=== PATIENT | female | born 1940 | race Caucasian/White ===

== ENCOUNTER 2017-06-16 21:30 | Inpatient (IN) | payer MEDICARE ==
[~2017-06-16] VITALS: Ht 154.9 cm; Wt 70.9 kg
[2017-06-16 21:11] VITALS: BP 150/93
[2017-06-16] MEDS ORDERED: AMLO10TA2 PO (22:42)
[2017-06-16] MEDS ORDERED: ACET650T89 PO (22:42)
[2017-06-16] MEDS ORDERED: GLUC-99 PO (22:42)
[2017-06-16] MEDS ORDERED: ALPR0.25 PO (22:42)
[2017-06-16] MEDS ORDERED: SENN1TAB37 PO (22:42)
[2017-06-16] MEDS ORDERED: LOSA25TA4 PO (22:42)
[2017-06-16] MEDS ORDERED: ASCO500T2 PO (22:42)
[2017-06-16] MEDS ORDERED: DOCU-109 PO (22:42)
[2017-06-16] MEDS ORDERED: LEVO137T3 PO (22:42)
[2017-06-16] MEDS ORDERED: OMEG-33 PO (22:42)
[2017-06-16] MEDS ORDERED: CHOL10003 PO (22:42)
[2017-06-16] MEDS ORDERED: ALPR0.5T PO (22:42)
[2017-06-16] MEDS ORDERED: CYAN10005 PO (22:42)
[2017-06-16] MEDS ORDERED: ALPRAZolam 0.5 MG TABLET PO PRN (23:00)
[2017-06-17 06:18] VITALS: BP 151/100
[2017-06-17 07:01] LABS: BASO % 1 % (0-3); EOS # 0.1 x10^3/uL (0.0-0.7); EOS % 1 % (0-3); HEMATOCRIT 43.3 % (36.0-47.0); HEMOGLOBIN 14.6 g/dL (12.0-15.5); LYMPH # 1.3 x10^3/uL (1.0-4.8); LYMPH % 21 % (24-48); MEAN CORPUSCULAR HEMOGLOBIN 32 pg (25-35); MEAN CORPUSCULAR HGB CONC 34 g/dL (31-37); MEAN CORPUSCULAR VOLUME 96 fL (79-100); MONO # 0.6 x10^3/uL (0.0-1.1); MONO % 9 % (0-9); NEUT # 4.2 x10^3uL (1.8-7.7); NEUT % 68 % (31-73); PLATELET COUNT 135 x10^3/uL (140-400); RED BLOOD COUNT 4.53 x10^6/uL (3.50-5.40); RED CELL DISTRIBUTION WIDTH 12.9 % (11.5-14.5); WHITE BLOOD COUNT 6.2 x10^3/uL (4.0-11.0)
[2017-06-17 07:06] LABS: ALBUMIN 3.8 g/dL (3.4-5.0); ALBUMIN/GLOBULIN RATIO 1.1 (1.0-1.7); CALCIUM 8.8 mg/dL (8.5-10.1); CREATININE 1.4 mg/dL (0.6-1.0); GFR 36.4; MAGNESIUM 2.1 mg/dL (1.8-2.4); POTASSIUM 4.1 mmol/L (3.5-5.1); TOTAL BILIRUBIN 0.7 mg/dL (0.2-1.0); TOTAL PROTEIN 7.3 g/dL (6.4-8.2)
[2017-06-17] MEDS: CHOLECALCIFEROL (VITAMIN D3) 1,000 UNIT TABLET PO SCH ×2 (14:00→14:42)
[2017-06-17] MEDS: ASCORBIC ACID 500 MG TABLET PO SCH ×2 (14:00→14:42)
[2017-06-17] MEDS: CYANOCOBALAMIN (VITAMIN B-12) 1,000 MCG TABLET. PO SCH ×2 (14:00→14:42)
[2017-06-17] MEDS: SENNOSIDES/DOCUSATE 8.6/50MG TABLET. PO PRN (14:42)
[2017-06-17] MEDS: amLODIPine BESYLATE 10 MG TABLET PO SCH (14:43)
[2017-06-17] MEDS: OMEGA-3 FATTY ACIDS/FISH OIL 1,000 MG CAPSULE. PO SCH (14:43)
[2017-06-17 16:54] VITALS: BP 171/94
[2017-06-17 17:09] LABS: T3 TOTAL 79 ng/dL (71-180); THYROXINE 12.3 ug/dL (4.5-12.0)
[2017-06-17 17:13] LABS: THYROID STIM HORMONE (TSH) 1.326 uIU/mL (0.358-3.740)
--- NOTE | 2017-06-17 20:22 | PDOC ---
Exam Michael Demential Exam: Michael Note: Please also refer to the separate dictated note~for this date of service dictated separately.~Patient seen individually. Discussed the patient with Nursing staff reviewed the chart.~Reviewed interim history and current functioning. Reviewed vital signs,~Labs/ Radiology~and current medications noted below. Continue current treatment with the changes noted in the dictated addendum note Assessment: Vital Signs: Vital Signs Date Time Temp Pulse Resp B/P (MAP) Pulse Ox O2 Delivery O2 Flow Rate FiO2 06/17/17 16:54 98.1 75 16 171/94 (119) 97 06/17/17 06:18 Room Air I&O Intake and Output 06/17/17 07:00 Intake Total 120 ml Balance 120 ml Intake Oral 120 ml # Voids 4 Labs: Laboratory Tests Test 06/17/17 06:41 White Blood Count 6.2 x10^3/uL (4.0-11.0) Red Blood Count 4.53 x10^6/uL (3.50-5.40) Hemoglobin 14.6 g/dL (12.0-15.5) Hematocrit 43.3 % (36.0-47.0) Mean Corpuscular Volume 96 fL (79-100) Mean Corpuscular Hemoglobin 32 pg (25-35) Mean Corpuscular Hemoglobin Concent 34 g/dL (31-37) Red Cell Distribution Width 12.9 % (11.5-14.5) Platelet Count 135 x10^3/uL (140-400) L Neutrophils (%) (Auto) 68 % (31-73) Lymphocytes (%) (Auto) 21 % (24-48) L Monocytes (%) (Auto) 9 % (0-9) Eosinophils (%) (Auto) 1 % (0-3) Basophils (%) (Auto) 1 % (0-3) Neutrophils # (Auto) 4.2 x10^3uL (1.8-7.7) Lymphocytes # (Auto) 1.3 x10^3/uL (1.0-4.8) Monocytes # (Auto) 0.6 x10^3/uL (0.0-1.1) Eosinophils # (Auto) 0.1 x10^3/uL (0.0-0.7) Basophils # (Auto) 0.0 x10^3/uL (0.0-0.2) Sodium Level 140 mmol/L (136-145) Potassium Level 4.1 mmol/L (3.5-5.1) Chloride Level 104 mmol/L (98-107) Carbon Dioxide Level 28 mmol/L (21-32) Anion Gap 8 (6-14) Blood Urea Nitrogen 26 mg/dL (7-20) H Creatinine 1.4 mg/dL (0.6-1.0) H Estimated GFR (Cockcroft-Gault) 36.4 BUN/Creatinine Ratio 19 (6-20) Glucose Level 112 mg/dL (70-99) H Calcium Level 8.8 mg/dL (8.5-10.1) Magnesium Level 2.1 mg/dL (1.8-2.4) Iron Level 69 ug/dL (50-170) Total Iron Binding Capacity 305 ug/dL (250-450) Iron Saturation 23 % (15-34) Total Bilirubin 0.7 mg/dL (0.2-1.0) Aspartate Amino Transferase (AST) 18 U/L (15-37) Alanine Aminotransferase (ALT) 21 U/L (14-59) Alkaline Phosphatase 63 U/L (46-116) Total Protein 7.3 g/dL (6.4-8.2) Albumin 3.8 g/dL (3.4-5.0) Albumin/Globulin Ratio 1.1 (1.0-1.7) Triglycerides Level 85 mg/dL (0-150) Cholesterol Level 264 mg/dL (0-200) H LDL Cholesterol, Calculated 141 mg/dL (0-100) H VLDL Cholesterol, Calculated 17 mg/dL (0-40) Non-HDL Cholesterol Calculated 158 mg/dL (0-129) H HDL Cholesterol 106 mg/dL (40-60) H Cholesterol/HDL Ratio 2.0 Vitamin B12 Level > 2000 pg/mL (247-911) H 25-Hydroxy Vitamin D Total Pending Thyroid Stimulating Hormone (TSH) 1.326 uIU/mL (0.358-3.740) Thyroxine (T4) 12.3 ug/dL (4.5-12.0) H Total Triiodothyronine (TT3) 79 ng/dL (71-180) RPR Titer Additional Testing Pending Current Medications: Meds: Current Medications Alprazolam (Xanax) 0.25 mg PRN QHS PRN PO Mild Anxiety; Start 06/16/17 at 23:00 Alprazolam (Xanax) 0.5 mg PRN QHS PRN PO Severe Agitation; Start 06/16/17 at 23 :00 Amlodipine Besylate (Norvasc) 10 mg DAILY PO Last administered on 06/17/17t 14: 43; Start 06/17/17 at 14:00 Ascorbic Acid (Vitamin C) 1,000 mg DAILY PO ; Start 06/17/17 at 14:00 Vitamin D (Vitamin D3) 1,000 unit DAILY PO ; Start 06/17/17 at 14:00 Cyanocobalamin (Vitamin B-12) 1,000 mcg DAILY PO ; Start 06/17/17 at 14:00 Docusate Sodium (Colace) 100 mg QHS PO ; Start 06/17/17 at 21:00 Levothyroxine Sodium (Synthroid) 137 mcg DAILY06 PO ; Start 06/18/17 at 06:00 Losartan Potassium (Cozaar) 25 mg DAILY PO ; Start 06/18/17 at 09:00; Stop 06/18 at 09:00; Status DC Senna/Docusate Sodium (Senna Plus) 1 tab PRN DAILY PRN PO CONSTIPATION; Start 06/17/17 at 13:45 Acetaminophen (Tylenol) 1,300 mg QHS PO ; Start 06/17/17 at 21:00 Glucosamine/ Chondroitin (Glucosamine-Chondroitin 500/400mg) 2 cap DAILY PO ; Start 06/17/17 at 21:00 Fish Oil (Fish Oil) 1,000 mg DAILY PO Last administered on 06/17/17t 14:43; Start 06/17/17 at 14:00 Bupropion HCl (Wellbutrin Xl) 150 mg DAILY PO ; Start 06/18/17 at 09:00 Quetiapine Fumarate (SEROquel) 25 mg QHS PO ; Start 06/17/17 at 21:00 Artificial Tears (Artificial Tears) 1 drop PRN QID PRN OU DRY EYE; Start at 19:15 Active Scripts Active Reported Arthritis Pain (Acetaminophen) 650 Mg Tablet.er 1,300 Mg PO QHS Sennosides-Docusate Sodium Tab (Sennosides/Docusate Sodium) 1 Each Tablet 1 Tab PO PRN DAILY PRN Colace (Docusate Sodium) 100 Mg Capsule 100 Mg PO QHS Vitamin D3 (Cholecalciferol (Vitamin D3)) 1,000 Unit Tablet 1,000 Unit PO DAILY Vitamin B-12 (Cyanocobalamin (Vitamin B-12)) 1,000 Mcg Tablet 1,000 Mcg PO DAILY Glucosamine Chondroitin [place] (Glucosa [place] 2KCL/Chondroitin Grady) 1 Each Tablet 2 Cap PO DAILY Vitamin C (Ascorbic Acid) 500 Mg Tablet 1,000 Mg PO DAILY [place] 3 1,000 Mg Softgel ([place]-3 Fatty Acids/Fish Oil) 1 Each Capsule 1 Cap PO DAILY Xanax (Alprazolam) 0.5 Mg Tablet 0.5 Mg PO PRN QHS PRN Xanax (Alprazolam) 0.25 Mg Tablet 0.25 Mg PO PRN QHS PRN Levothyroxine Sodium 137 Mcg Tablet 137 Mcg PO DAILY07 Amlodipine Besylate 10 Mg Tablet 10 Mg PO DAILY Losartan Potassium 25 Mg Tablet 25 Mg PO DAILY RACHELLE CHIN MD Jun 17, 2017 20:22
[2017-06-17] MEDS: GLUCOSAMINE/CHOND 500/400MG CAPSULE PO SCH (20:53)
[2017-06-17] MEDS: DOCUSATE SODIUM 100 MG CAPSULE PO SCH (20:53)
[2017-06-17] MEDS: ACETAMINOPHEN 325 MG TABLET PO SCH ×2 (20:53→21:00)
[2017-06-17] MEDS: QUEtiapine 25 MG TABLET. PO SCH (20:53)
--- NOTE | 2017-06-18 00:01 | HP ---
ADMIT DATE: 06/17/2017 PSYCHIATRIC ADMISSION HISTORY/EVALUATION IDENTIFYING DATA: The patient is a 76-year-old female referred to us by Dr. Arti Ramon who is a physician on-call for [facility]. After Dr. Ramon called herself requesting patient to be considered for inpatient psychiatric evaluation and stabilization on our unit on account of worsening confusion, worsening symptoms of depression, not caring for herself, not showering unable to cook for herself. Reportedly, has been taking the patient 3-1/2 hours to make a can of soup. She has been noncompliant with the medications increasingly paranoid more confused. Her symptoms have been worsening over the past few weeks. The patient had been evaluated at the [facility] Emergency Room, thought to be medically stable and family were told that she needed to be supervised at times 24 hours a day. The patient's behaviors were deemed dangerous, unmanageable and having failed outpatient psychiatric interventions, as an outpatient Dr. Ramon made the referral after reviewing all of her previous electronic medical records within the [facility]. CHIEF COMPLAINT: "This is a mistake." The patient was relating that it was a mistake for her to come here. She is quite depressed, withdrawn, isolative, but reasonably oriented aware of the year. Knew she was at [facility] and knew who the president was as I met with her. HISTORY OF PRESENT ILLNESS: The patient has a history of progressively worsening symptoms of depression. She has been increasingly withdrawn, isolative unable to take care of her day-to-day activities increasingly paranoid. No clear suicidal or homicidal ideation. No clear history of bipolar disorder. She has had some short-term memory deficits, but reasonably grossly oriented. PSYCHIATRIC HISTORY: As above. This note covers elements not covered in my initial note. Page 14. MEDICAL HISTORY: Hypertension, hypothyroidism, chronic constipation. Code status is full. ALLERGIES: MORPHINE, QUININE, LISINOPRIL, SIMVASTATIN, CYMBALTA, HYDROCODONE, PROCHLORPERAZINE EDISYLATE. Diet is regular. Takes her medications whole. Ambulate with a walker. UA was negative. CURRENT PSYCHOTROPICS: Xanax 0.5 mg at bedtime p.r.n. ____ agree. SOCIAL HISTORY: No history of alcohol, drug abuse, physical, sexual or elder abuse history is noted. She is not known to be a perpetrator. 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 MENTAL STATUS EXAM: The patient was seen individually evening of 06/17/2017. She admits to feeling cold and nursing staff had given her a warm blanket at suppertime and she felt more comfortable with this. Speech has moderate latency, often responses monosyllabic. She was aware of the year, month where she was. Mood is depressed. Affect is mood congruent. She is paranoid, suspicious. Attention span short. Language function intact. Intellect average, insight limited, judgment marginal. No active suicidal or homicidal ideation. REVIEW OF SYSTEMS: No CV, , pulmonary, eye, ENT system symptoms on review. IMPRESSION: Major depressive disorder recurrent with psychotic features, mild cognitive impairment; anxiety disorder, unspecified. Rest diagnoses as above. PLAN: Admit to the geropsychiatry unit at [facility]. I will see the patient daily individually from a psychiatric standpoint medical followup with Dr. Huynh/Dr. Dang. Continue current psychotropics. Start Wellbutrin-XL 150 mg a day in the morning for depression and Seroquel 25 mg p.o. at bedtime to augment the Wellbutrin to help with the mood stability and as an atypical antipsychotic. We will make further adjustments as clinically indicated. MAN Lula CHIN MD DR: JAVI/sebastian JOB#: [id number] / [id number]
[2017-06-18 05:09] LABS: HEMOGLOBIN A1C 5.1 % (4.8-5.6)
[2017-06-18] MEDS: LEVOTHYROXINE 137 MCG TABLET PO SCH (05:31)
[2017-06-18 05:32] VITALS: BP 128/79
--- NOTE | 2017-06-18 05:39 | CONS ---
DATE OF CONSULTATION: 06/17/2017 REASON FOR CONSULTATION: Medical management. HISTORY OF PRESENT ILLNESS: The patient is a 76-year-old female patient who was admitted from home on the basis of exacerbation of her dementia symptoms, unable to take care for herself, confusion, and noncompliant with medication, paranoid, and took about 3-1/2 hours to make can of soup, all this in the background of dementia with behavioral disturbances. Apparently, the patient was evaluated in the Emergency Room at [facility]. The patient herself admitted to confusion and depression. According to her family, she can be also very mean at times and aggressive, although she has not displayed any of that in this facility so far. When she was evaluated at [facility], it was suggested that the family should look for an Assisted Living as it is unsafe for her to live on her own, however, the family decided to admit her here for inpatient psychiatric stabilization. PAST MEDICAL HISTORY: Significant for breast cancer of the lower inner quadrant of the right female breast, right grade II hormone plus CIS. She has hypertension, hypothyroidism, osteoarthritis, obstructive sleep apnea on CPAP, osteopenia. She has degenerative disk disease, history of blood transfusion, thrombotic thrombocytopenia as well as degenerative disk disease, cervical and lumbar spine and severe degenerative joint disease of both knee joints. She has also history of acute renal failure that has resolved, atypical ductal hyperplasia of the breast in 2009. PAST SURGICAL HISTORY: Significant for right breast biopsy, breast cyst aspiration, bilateral cataract extraction, colonoscopy showed diverticulosis with tubular adenoma. She underwent dilatation and curettage, history of breast biopsy x 3 all benign, thyroidectomy, tubal ligation, knee replacement, lumpectomy, and tonsillectomy. SOCIAL HISTORY: She lives alone. She never smoked, does not drink alcohol or use any drugs. FAMILY HISTORY: Significant for the fact that her mother at age of 35 from renal failure associated with . Her sister has lung cancer. Maternal aunt has oral cancer and a sister has a cancer. REVIEW OF SYSTEMS: The patient was basically refused to answer most of my questions; however, she was resting flat, comfortably in no apparent respiratory distress. No pallor, jaundice, cyanosis, or thyromegaly. No jugular venous distension. No lower limb edema. PHYSICAL EXAMINATION: VITAL SIGNS: Her heart rate was 83, blood pressure 151/100, temperature was 98.1, respiratory rate 20, and oxygen saturation was 98%. HEAD, EYES, EARS, NOSE, AND THROAT: Showed normocephalic, atraumatic. NECK: Supple. HEART: Showed normal first and second sounds. No gallop, rub or murmur. CHEST: Clear to auscultation. No crepitation or rhonchi. ABDOMEN: Slightly distended, soft, nontender. No guarding or rigidity. No organomegaly. All hernial orifices intact. Bowel sounds normal. NEUROLOGIC: She is awake, alert, somewhat withdrawn; however, all her cranial nerves are intact. She moves extremities without difficulty. She ambulates with a walker. LABORATORY DATA: Her lab work showed a white cell count 6200, hemoglobin 14.6, hematocrit 43, MCV 96, and platelet count of 135,000. Her chemistry showed a serum sodium 140, potassium 4.1, chloride 104, bicarbonate 28, anion gap of 8, BUN 28, creatinine 1.4, estimated GFR was 36 mL per minute. Her glucose 112, calcium was 8.8, magnesium 2.1. Total bilirubin, AST, ALT, alkaline phosphatase were normal. Her total protein was 7.3, albumin 3.8. She is currently on following medications: She is on Tylenol 650 mg every 4 hours and 1300 mg at bedtime, alprazolam 0.25 mg at bedtime and 0.5 mg as needed at bedtime, amlodipine 10 mg once a day, ascorbic acid 500 mg daily, cholecalciferol with vitamin D3 of 1000 international units once a day, cyanocobalamin 1000 mcg tablet once a day, Colace 100 mg once a day, she is on glucosamine chondroitin 2 capsules daily, levothyroxine sodium 137 mcg once a day, losartan potassium 25 mg once a day, omega-3 fatty acid fish oil 1 capsule daily, she is on Senna-S 1 tablet p.o. daily p.r.n. for constipation. IMPRESSION: In summary, this is a 76-year-old female patient who was admitted directly from home by her family request as she has marked exacerbation of her dementia symptoms, unable to care for herself with increased confusion, paranoia. She is noncompliant with the medication. She is here for inpatient psychiatric stabilization. She has multiple medical problems including hypertension, hypothyroidism, chronic constipation. She is also known to have hyperlipidemia and her past psychiatric history is significant for dementia as well as depression. All in all she seemed to be medically stable, all her vital signs are within acceptable range. Her lab work also within acceptable range except that she has thrombocytopenia, apparently is known to have thrombocytopenia before. She is not on any medications that make her bleed or interfere with the platelet function. Her hypertension is suboptimally controlled. She is on losartan potassium 25 mg that can be increased to 50. I will await the results of her TSH. Her kidney function is slightly improved, most likely reflecting dehydration. She is not on any nephrotoxic medications. She is apparently allergic to MORPHINE, QUININE, LISINOPRIL, SIMVASTATIN, CYMBALTA, HYDROCODONE, PROCHLORPERAZINE. PLAN: My plan is to probably discontinue losartan, start her on amlodipine as it is less nephrotoxic and will obviously attempt to increase her water intake and follow all her labs that are still pending and make any necessary recommendation. Thank you, Dr. Bui for allowing me to participate in the care of this patient. MARLYN GARCIA MD DR: SANTOSH/sebastian JOB#: [id number] / [id number]
[2017-06-18] MEDS: ASCORBIC ACID 500 MG TABLET PO SCH (08:57)
[2017-06-18] MEDS: CYANOCOBALAMIN (VITAMIN B-12) 1,000 MCG TABLET. PO SCH (08:57)
[2017-06-18] MEDS: CHOLECALCIFEROL (VITAMIN D3) 1,000 UNIT TABLET PO SCH (08:57)
[2017-06-18] MEDS: OMEGA-3 FATTY ACIDS/FISH OIL 1,000 MG CAPSULE. PO SCH (08:57)
[2017-06-18] MEDS: amLODIPine BESYLATE 10 MG TABLET PO SCH (08:57)
[2017-06-18] MEDS: GLUCOSAMINE/CHOND 500/400MG CAPSULE PO SCH (08:57)
[2017-06-18] MEDS: buPROPion XL 150 MG TAB.ER.24H PO SCH (08:58)
[2017-06-18] MEDS ORDERED: LOSARTAN 25 MG TABLET. PO SCH (09:00)
[2017-06-18] MEDS: POLYVINYL ALCOHOL 1.4% OPHTH SOLUTION 15ML BOTTLE. OU PRN ×2 (09:14→20:50)
[2017-06-18 16:30] VITALS: BP 122/88
--- NOTE | 2017-06-18 19:56 | PDOC ---
Exam Michael Demential Exam: Michael Note: Please also refer to the separate dictated note~for this date of service dictated separately.~Patient seen individually. Discussed the patient with Nursing staff reviewed the chart.~Reviewed interim history and current functioning. Reviewed vital signs,~Labs/ Radiology~and current medications noted below. Continue current treatment with the changes noted in the dictated addendum note Assessment: Vital Signs: Vital Signs Date Time Temp Pulse Resp B/P (MAP) Pulse Ox O2 Delivery O2 Flow Rate FiO2 06/18/17 16:30 99.4 75 18 122/88 (99) 97 06/18/17 05:32 Room Air I&O Intake and Output 06/18/17 07:00 Intake Total 360 ml Balance 360 ml Intake Oral 360 ml Current Medications: Meds: Current Medications Alprazolam (Xanax) 0.25 mg PRN QHS PRN PO Mild Anxiety; Start 06/16/17 at 23:00 Alprazolam (Xanax) 0.5 mg PRN QHS PRN PO Severe Agitation; Start 06/16/17 at 23 :00 Amlodipine Besylate (Norvasc) 10 mg DAILY PO Last administered on 06/18/17 08: 57; Start 06/17/17 at 14:00 Ascorbic Acid (Vitamin C) 1,000 mg DAILY PO Last administered on 06/18/17 08: 57; Start 06/17/17 at 14:00 Vitamin D (Vitamin D3) 1,000 unit DAILY PO Last administered on 06/18/17 08:57 ; Start 06/17/17 at 14:00 Cyanocobalamin (Vitamin B-12) 1,000 mcg DAILY PO Last administered on 08:57; Start 06/17/17 at 14:00 Docusate Sodium (Colace) 100 mg QHS PO Last administered on 06/17/17 20:53; Start 06/17/17 at 21:00 Levothyroxine Sodium (Synthroid) 137 mcg DAILY06 PO Last administered on 05:31; Start 06/18/17 at 06:00 Losartan Potassium (Cozaar) 25 mg DAILY PO ; Start 06/18/17 at 09:00; Stop 06/18 at 09:00; Status DC Senna/Docusate Sodium (Senna Plus) 1 tab PRN DAILY PRN PO CONSTIPATION; Start 06/17/17 at 13:45 Acetaminophen (Tylenol) 1,300 mg QHS PO ; Start 06/17/17 at 21:00 Glucosamine/ Chondroitin (Glucosamine-Chondroitin 500/400mg) 2 cap DAILY PO Last administered on 06/18/17 08:57; Start 06/17/17 at 21:00 Fish Oil (Fish Oil) 1,000 mg DAILY PO Last administered on 06/18/17 08:57; Start 06/17/17 at 14:00 Bupropion HCl (Wellbutrin Xl) 150 mg DAILY PO Last administered on 06/18/17 08 :58; Start 06/18/17 at 09:00 Quetiapine Fumarate (SEROquel) 25 mg QHS PO Last administered on 06/17/17 20: 53; Start 06/17/17 at 21:00 Artificial Tears (Artificial Tears) 1 drop PRN QID PRN OU DRY EYE Last administered on 06/18/17 09:14; Start 06/17/17 at 19:15 Active Scripts Active Reported Arthritis Pain (Acetaminophen) 650 Mg Tablet.er 1,300 Mg PO QHS Sennosides-Docusate Sodium Tab (Sennosides/Docusate Sodium) 1 Each Tablet 1 Tab PO PRN DAILY PRN Colace (Docusate Sodium) 100 Mg Capsule 100 Mg PO QHS Vitamin D3 (Cholecalciferol (Vitamin D3)) 1,000 Unit Tablet 1,000 Unit PO DAILY Vitamin B-12 (Cyanocobalamin (Vitamin B-12)) 1,000 Mcg Tablet 1,000 Mcg PO DAILY Glucosamine Chondroitin Caplet (Glucosa Grady 2KCL/Chondroitin Grady) 1 Each Tablet 2 Cap PO DAILY Vitamin C (Ascorbic Acid) 500 Mg Tablet 1,000 Mg PO DAILY [place] 3 1,000 Mg Softgel ([place]-3 Fatty Acids/Fish Oil) 1 Each Capsule 1 Cap PO DAILY Xanax (Alprazolam) 0.5 Mg Tablet 0.5 Mg PO PRN QHS PRN Xanax (Alprazolam) 0.25 Mg Tablet 0.25 Mg PO PRN QHS PRN Levothyroxine Sodium 137 Mcg Tablet 137 Mcg PO DAILY07 Amlodipine Besylate 10 Mg Tablet 10 Mg PO DAILY Losartan Potassium 25 Mg Tablet 25 Mg PO DAILY Diagnosis: Problems: (1) Anxiety disorder (2) Psychotic depression (3) Major depressive disorder, recurrent episode (4) Mild cognitive disorder RACHELLE CHIN MD Jun 18, 2017 19:56
[2017-06-18] MEDS: ACETAMINOPHEN 325 MG TABLET PO SCH (20:27)
[2017-06-18] MEDS: QUEtiapine 25 MG TABLET. PO SCH (20:28)
[2017-06-18] MEDS: DOCUSATE SODIUM 100 MG CAPSULE PO SCH (20:28)
[2017-06-19] MEDS: LEVOTHYROXINE 137 MCG TABLET PO SCH (05:54)
[2017-06-19 06:29] VITALS: BP 130/84
[2017-06-19] MEDS: buPROPion XL 150 MG TAB.ER.24H PO SCH (07:53)
[2017-06-19] MEDS: CYANOCOBALAMIN (VITAMIN B-12) 1,000 MCG TABLET. PO SCH (07:54)
[2017-06-19] MEDS: amLODIPine BESYLATE 10 MG TABLET PO SCH (07:54)
[2017-06-19] MEDS: GLUCOSAMINE/CHOND 500/400MG CAPSULE PO SCH (07:54)
[2017-06-19] MEDS: ASCORBIC ACID 500 MG TABLET PO SCH (07:54)
[2017-06-19] MEDS: CHOLECALCIFEROL (VITAMIN D3) 1,000 UNIT TABLET PO SCH (07:54)
[2017-06-19] MEDS: OMEGA-3 FATTY ACIDS/FISH OIL 1,000 MG CAPSULE. PO SCH (07:54)
[2017-06-19 16:33] VITALS: BP 139/88
[2017-06-19] MEDS: ALPRAZolam 0.25 MG TABLET PO PRN (17:42)
[2017-06-19] MEDS: QUEtiapine 25 MG TABLET. PO SCH ×2 (20:09→20:20)
[2017-06-19] MEDS: DOCUSATE SODIUM 100 MG CAPSULE PO SCH ×2 (20:09→20:20)
[2017-06-19] MEDS: ACETAMINOPHEN 325 MG TABLET PO SCH ×2 (20:09→20:21)
[2017-06-20 05:54] VITALS: BP 146/82
[2017-06-20] MEDS: LEVOTHYROXINE 137 MCG TABLET PO SCH (05:55)
[2017-06-20] MEDS: CYANOCOBALAMIN (VITAMIN B-12) 1,000 MCG TABLET. PO SCH (07:50)
[2017-06-20] MEDS: CHOLECALCIFEROL (VITAMIN D3) 1,000 UNIT TABLET PO SCH (10:05)
[2017-06-20] MEDS: OMEGA-3 FATTY ACIDS/FISH OIL 1,000 MG CAPSULE. PO SCH (10:06)
[2017-06-20] MEDS: amLODIPine BESYLATE 10 MG TABLET PO SCH (10:06)
[2017-06-20] MEDS: buPROPion XL 150 MG TAB.ER.24H PO SCH (10:06)
[2017-06-20] MEDS: ASCORBIC ACID 500 MG TABLET PO SCH (10:06)
[2017-06-20] MEDS: GLUCOSAMINE/CHOND 500/400MG CAPSULE PO SCH (10:06)
[2017-06-20] MEDS: POLYVINYL ALCOHOL 1.4% OPHTH SOLUTION 15ML BOTTLE. OU PRN (12:39)
--- NOTE | 2017-06-20 14:35 | PN ---
DATE: 06/18/2017 PSYCHIATRIC PROGRESS NOTE This is a late entry for 06/18/2017, covers elements not covered in my initial note of 06/18/2017. SUBJECTIVE: I met with the patient evening of 06/18/2017. The patient slept 6-1/2 hours previous evening. She had visitors and her daughter called. Psychosocial history further revealed that she has had significant psychosocial stressors recently in the past 1 year. Two sisters have and she had a break breakup with her boyfriend. She admits to worsening symptoms of depression for the past 1-1/2 months along with paranoia, psychosis and on the surface, she appeared more confused. 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 She knew the name of the various psychiatrists at that facility, who I have known in the past. Remote memory is reasonable, recent does have some short-term memory deficits where she was much more animated, smiling. MENTAL STATUS EXAM: Oriented to herself and situation. Speech is coherent, abstraction fair, computation impaired, language function intact, attention span short. Mood and affect showing some improvement. LABORATORY DATA: Reviewed. IMPRESSION: Major depressive disorder with psychotic features; anxiety disorder, unspecified; mild cognitive impairment. Rest diagnosis unchanged. PLAN: Continue Seroquel 25 mg at bedtime, Wellbutrin-XL 150 mg a day, Xanax p.r.n. Adjust further as clinically indicated. May need to increase Seroquel in due course. RACHELLE CHIN MD DR: JAVI/sebastian JOB#: [id number] / [id number]
[2017-06-20 16:15] VITALS: BP 133/86
[2017-06-20] MEDS: SENNOSIDES/DOCUSATE 8.6/50MG TABLET. PO PRN ×2 (18:01→21:10)
--- NOTE | 2017-06-20 19:54 | PDOC ---
Exam Michael Demential Exam: Michael Note: Please also refer to the separate dictated note~for this date of service dictated separately.~Patient seen individually. Discussed the patient with Nursing staff reviewed the chart.~Reviewed interim history and current functioning. Reviewed vital signs,~Labs/ Radiology~and current medications noted below. Continue current treatment with the changes noted in the dictated addendum note Assessment: Vital Signs: Vital Signs Date Time Temp Pulse Resp B/P (MAP) Pulse Ox O2 Delivery O2 Flow Rate FiO2 06/20/17 16:15 97.2 82 20 133/86 (102) 95 06/18/17 05:32 Room Air I&O Intake and Output 06/20/17 07:00 Intake Total 600 ml Balance 600 ml Intake Oral 600 ml # Voids 2 Current Medications: Meds: Current Medications Alprazolam (Xanax) 0.25 mg PRN QHS PRN PO Mild Anxiety Last administered on 17:42; Start 06/16/17 at 23:00 Alprazolam (Xanax) 0.5 mg PRN QHS PRN PO Severe Agitation Last administered on 06/19/17 01:36; Start 06/16/17 at 23:00 Amlodipine Besylate (Norvasc) 10 mg DAILY PO Last administered on 06/20/17 10: 06; Start 06/17/17 at 14:00 Ascorbic Acid (Vitamin C) 1,000 mg DAILY PO Last administered on 06/20/17 10: 06; Start 06/17/17 at 14:00 Vitamin D (Vitamin D3) 1,000 unit DAILY PO Last administered on 06/20/17 10:05 ; Start 06/17/17 at 14:00 Cyanocobalamin (Vitamin B-12) 1,000 mcg DAILY PO Last administered on 07:54; Start 06/17/17 at 14:00 Docusate Sodium (Colace) 100 mg QHS PO Last administered on 06/18/17 20:28; Start 06/17/17 at 21:00 Levothyroxine Sodium (Synthroid) 137 mcg DAILY06 PO Last administered on 05:55; Start 06/18/17 at 06:00 Losartan Potassium (Cozaar) 25 mg DAILY PO ; Start 06/18/17 at 09:00; Stop 06/18 at 09:00; Status DC Senna/Docusate Sodium (Senna Plus) 1 tab PRN DAILY PRN PO CONSTIPATION Last administered on 06/20/17 18:01; Start 06/17/17 at 13:45 Acetaminophen (Tylenol) 1,300 mg QHS PO Last administered on 06/18/17 20:27; Start 06/17/17 at 21:00 Glucosamine/ Chondroitin (Glucosamine-Chondroitin 500/400mg) 2 cap DAILY PO Last administered on 06/20/17 10:06; Start 06/17/17 at 21:00 Fish Oil (Fish Oil) 1,000 mg DAILY PO Last administered on 06/20/17 10:06; Start 06/17/17 at 14:00 Bupropion HCl (Wellbutrin Xl) 150 mg DAILY PO Last administered on 06/20/17 10 :06; Start 06/18/17 at 09:00; Stop 06/20/17 at 11:07; Status DC Quetiapine Fumarate (SEROquel) 25 mg QHS PO Last administered on 06/18/17 20: 28; Start 06/17/17 at 21:00; Stop 06/19/17 at 18:24; Status DC Artificial Tears (Artificial Tears) 1 drop PRN QID PRN OU DRY EYE Last administered on 06/20/17 12:39; Start 06/17/17 at 19:15 Quetiapine Fumarate (SEROquel) 50 mg QHS PO ; Start 06/19/17 at 21:00 Bupropion HCl (Wellbutrin Xl) 300 mg DAILY PO ; Start 06/21/17 at 09:00 Active Scripts Active Reported Arthritis Pain (Acetaminophen) 650 Mg Tablet.er 1,300 Mg PO QHS Sennosides-Docusate Sodium Tab (Sennosides/Docusate Sodium) 1 Each Tablet 1 Tab PO PRN DAILY PRN Colace (Docusate Sodium) 100 Mg Capsule 100 Mg PO QHS Vitamin D3 (Cholecalciferol (Vitamin D3)) 1,000 Unit Tablet 1,000 Unit PO DAILY Vitamin B-12 (Cyanocobalamin (Vitamin B-12)) 1,000 Mcg Tablet 1,000 Mcg PO DAILY Glucosamine Chondroitin Caplet (Glucosa Grady 2KCL/Chondroitin Grady) 1 Each Tablet 2 Cap PO DAILY Vitamin C (Ascorbic Acid) 500 Mg Tablet 1,000 Mg PO DAILY [place] 3 1,000 Mg Softgel ([place]-3 Fatty Acids/Fish Oil) 1 Each Capsule 1 Cap PO DAILY Xanax (Alprazolam) 0.5 Mg Tablet 0.5 Mg PO PRN QHS PRN Xanax (Alprazolam) 0.25 Mg Tablet 0.25 Mg PO PRN QHS PRN Levothyroxine Sodium 137 Mcg Tablet 137 Mcg PO DAILY07 Amlodipine Besylate 10 Mg Tablet 10 Mg PO DAILY Losartan Potassium 25 Mg Tablet 25 Mg PO DAILY Diagnosis: Problems: (1) Anxiety disorder (2) Psychotic depression (3) Major depressive disorder, recurrent episode RACHELLE CHIN MD Jun 20, 2017 19:54
[2017-06-20] MEDS: ACETAMINOPHEN 325 MG TABLET PO SCH (20:31)
[2017-06-20] MEDS: QUEtiapine 25 MG TABLET. PO SCH (20:31)
[2017-06-20] MEDS: DOCUSATE SODIUM 100 MG CAPSULE PO SCH (20:31)
--- NOTE | 2017-06-20 23:56 | PN ---
DATE: 06/19/2017 SUBJECTIVE: This is a late entry 06/19/2017 covers elements not covered in my initial note of 06/19/2017. I met with the patient in the evening of 06/19/2017. The patient slept about 5 hours the previous evening. She has done better for part of the day, but towards the evening, she has been withdrawn, refusing to communicate and talk. When she was interactive in groups, she was able to select 6 of the cards correctly out of 8 presented to her. REVIEW OF SYSTEMS: No CV, , pulmonary, eye, ENT system symptoms on review. MENTAL STATUS EXAM: As I met with her the evening of 06/19/2017, speech had moderate latency, often responses monosyllabic. She stated she felt guilty about what she had done in life. Appears somewhat psychotic, extremely depressed, abstraction fair, computation impaired, language function intact. No active suicidal or homicidal ideation. Attention span short. Language function intact. LABORATORY DATA: Reviewed. IMPRESSION: Major depressive disorder, recurrent with psychotic features; anxiety disorder, unspecified mild cognitive impairment versus major neurocognitive disorder, early Alzheimer vascular with depression, delusion. PLAN: Increase bedtime Seroquel from 25 mg to 50 mg. Maintain Wellbutrin XL 150 mg, may need to increase this. Continue Xanax p.r.n. Reviewed drug interactions risk/benefit ratio favors no further change as of now. RACHELLE CHIN MD DR: JAVI/sebastian JOB#: [id number] / [id number]
[2017-06-21] MEDS: LEVOTHYROXINE 137 MCG TABLET PO SCH (05:59)
[2017-06-21 06:12] VITALS: BP 117/69
[2017-06-21] MEDS: ASCORBIC ACID 500 MG TABLET PO SCH (08:11)
[2017-06-21] MEDS: CYANOCOBALAMIN (VITAMIN B-12) 1,000 MCG TABLET. PO SCH ×2 (08:11→09:00)
[2017-06-21] MEDS: GLUCOSAMINE/CHOND 500/400MG CAPSULE PO SCH (08:11)
[2017-06-21] MEDS: OMEGA-3 FATTY ACIDS/FISH OIL 1,000 MG CAPSULE. PO SCH (08:11)
[2017-06-21] MEDS: CHOLECALCIFEROL (VITAMIN D3) 1,000 UNIT TABLET PO SCH (08:11)
[2017-06-21] MEDS: amLODIPine BESYLATE 10 MG TABLET PO SCH (08:13)
[2017-06-21] MEDS: buPROPion XL 300 MG TAB.ER.24H. PO SCH (08:14)
[2017-06-21 16:41] VITALS: BP 151/88
[2017-06-21] MEDS: DOCUSATE SODIUM 100 MG CAPSULE PO SCH (19:47)
[2017-06-21] MEDS: ACETAMINOPHEN 325 MG TABLET PO SCH (19:47)
[2017-06-21] MEDS: QUEtiapine 25 MG TABLET. PO SCH (19:48)
--- NOTE | 2017-06-21 19:58 | PDOC ---
Exam Michael Demential Exam: Michael Note: Please also refer to the separate dictated note~for this date of service dictated separately.~Patient seen individually. Discussed the patient with Nursing staff reviewed the chart.~Reviewed interim history and current functioning. Reviewed vital signs,~Labs/ Radiology~and current medications noted below. Continue current treatment with the changes noted in the dictated addendum note Assessment: Vital Signs: Vital Signs Date Time Temp Pulse Resp B/P (MAP) Pulse Ox O2 Delivery O2 Flow Rate FiO2 06/21/17 16:41 98.2 81 18 151/88 (109) 98 06/18/17 05:32 Room Air I&O Intake and Output 06/21/17 07:00 Intake Total 600 ml Balance 600 ml Intake Oral 600 ml # Voids 1 Current Medications: Meds: Current Medications Alprazolam (Xanax) 0.25 mg PRN QHS PRN PO Mild Anxiety Last administered on 17:42; Start 06/16/17 at 23:00 Alprazolam (Xanax) 0.5 mg PRN QHS PRN PO Severe Agitation Last administered on 06/19/17 01:36; Start 06/16/17 at 23:00 Amlodipine Besylate (Norvasc) 10 mg DAILY PO Last administered on 06/20/17 10: 06; Start 06/17/17 at 14:00 Ascorbic Acid (Vitamin C) 1,000 mg DAILY PO Last administered on 06/21/17 08: 11; Start 06/17/17 at 14:00 Vitamin D (Vitamin D3) 1,000 unit DAILY PO Last administered on 06/21/17 08:11 ; Start 06/17/17 at 14:00 Cyanocobalamin (Vitamin B-12) 1,000 mcg DAILY PO Last administered on 07:54; Start 06/17/17 at 14:00 Docusate Sodium (Colace) 100 mg QHS PO Last administered on 06/21/17 19:47; Start 06/17/17 at 21:00 Levothyroxine Sodium (Synthroid) 137 mcg DAILY06 PO Last administered on 05:59; Start 06/18/17 at 06:00 Losartan Potassium (Cozaar) 25 mg DAILY PO ; Start 06/18/17 at 09:00; Stop 06/18 at 09:00; Status DC Senna/Docusate Sodium (Senna Plus) 1 tab PRN DAILY PRN PO CONSTIPATION Last administered on 06/20/17 21:10; Start 06/17/17 at 13:45 Acetaminophen (Tylenol) 1,300 mg QHS PO Last administered on 06/21/17 19:47; Start 06/17/17 at 21:00 Glucosamine/ Chondroitin (Glucosamine-Chondroitin 500/400mg) 2 cap DAILY PO Last administered on 06/21/17 08:11; Start 06/17/17 at 21:00 Fish Oil (Fish Oil) 1,000 mg DAILY PO Last administered on 06/21/17 08:11; Start 06/17/17 at 14:00 Bupropion HCl (Wellbutrin Xl) 150 mg DAILY PO Last administered on 06/20/17 10 :06; Start 06/18/17 at 09:00; Stop 06/20/17 at 11:07; Status DC Quetiapine Fumarate (SEROquel) 25 mg QHS PO Last administered on 06/18/17 20: 28; Start 06/17/17 at 21:00; Stop 06/19/17 at 18:24; Status DC Artificial Tears (Artificial Tears) 1 drop PRN QID PRN OU DRY EYE Last administered on 06/20/17 12:39; Start 06/17/17 at 19:15 Quetiapine Fumarate (SEROquel) 50 mg QHS PO Last administered on 06/21/17 19: 48; Start 06/19/17 at 21:00 Bupropion HCl (Wellbutrin Xl) 300 mg DAILY PO Last administered on 06/21/17 08 :14; Start 06/21/17 at 09:00 Active Scripts Active Reported Arthritis Pain (Acetaminophen) 650 Mg Tablet.er 1,300 Mg PO QHS Sennosides-Docusate Sodium Tab (Sennosides/Docusate Sodium) 1 Each Tablet 1 Tab PO PRN DAILY PRN Colace (Docusate Sodium) 100 Mg Capsule 100 Mg PO QHS Vitamin D3 (Cholecalciferol (Vitamin D3)) 1,000 Unit Tablet 1,000 Unit PO DAILY Vitamin B-12 (Cyanocobalamin (Vitamin B-12)) 1,000 Mcg Tablet 1,000 Mcg PO DAILY Glucosamine Chondroitin [place] (Glucosa [place] 2KCL/Chondroitin Grady) 1 Each Tablet 2 Cap PO DAILY Vitamin C (Ascorbic Acid) 500 Mg Tablet 1,000 Mg PO DAILY [place] 3 1,000 Mg Softgel ([place]-3 Fatty Acids/Fish Oil) 1 Each Capsule 1 Cap PO DAILY Xanax (Alprazolam) 0.5 Mg Tablet 0.5 Mg PO PRN QHS PRN Xanax (Alprazolam) 0.25 Mg Tablet 0.25 Mg PO PRN QHS PRN Levothyroxine Sodium 137 Mcg Tablet 137 Mcg PO DAILY07 Amlodipine Besylate 10 Mg Tablet 10 Mg PO DAILY Losartan Potassium 25 Mg Tablet 25 Mg PO DAILY Diagnosis: Problems: (1) Anxiety disorder (2) Psychotic depression (3) Major depressive disorder, recurrent episode (4) Mild cognitive disorder RACHELLE CHIN MD Jun 21, 2017 19:58
--- NOTE | 2017-06-22 02:29 | PN ---
DATE: 06/20/2017 SUBJECTIVE: This is a late entry 06/20/2017, covers elements not covered in my initial note of 06/20/2017. Morning of 06/20/2017, we had a lengthy treatment team meeting with the patient's daughters Ray Kim, Eliza elsi, and fourth family member as well. Previous evening, the patient was depressed, withdrawn, and refusing to talk. She slept 7-1/4 hours, but states she did not sleep well refusing medications. Received Xanax at 1 a.m. because of increasing agitation. Took her p.m. medications in the day room. There is a family history of bipolar disorder in the youngest daughter. I have reviewed results of CT head from [facility]. No acute changes. Age related atrophy greater than stated age and chronic microvascular changes. REVIEW OF SYSTEMS: Ambulation impaired with walker. No CV, , pulmonary, eye, or ENT system symptoms on review. MENTAL STATUS EXAM: Reasonably oriented. Does have some short-term memory deficits. Speech coherent, abstraction fair, computation impaired, and language function intact. Mood and affect still depressed. We had a lengthy discussion with the daughters. Educated them on the patient's diagnosis and medications. The patient's two daughters are nurse, one is a pharmacist and they had very relevant and appropriate questions and suggestions. LABORATORY DATA: Reviewed. IMPRESSION: Unchanged from initial note. PLAN: Increase Wellbutrin-XL to 300 mg in the morning. She has been refusing Seroquel. I discussed at length with her she is agreeable to taking it evening of 06/20/2017. We have increased it to 50 mg at bedtime. Continue Xanax p.r.n. Adjust further as clinically indicated. I have carefully reviewed the drug interactions for each of her psychotropics with the rest of her nonpsychotropic medications and potential side effects. Risk/benefit ratio favors no further change as of now. RACHELLE CHIN MD DR: JAVI/sebastian JOB#: [id number] / [id number]
[2017-06-22] MEDS: LEVOTHYROXINE 137 MCG TABLET PO SCH ×2 (05:24→05:48)
[2017-06-22 06:12] VITALS: BP 138/87
[2017-06-22] MEDS: CYANOCOBALAMIN (VITAMIN B-12) 1,000 MCG TABLET. PO SCH (07:34)
[2017-06-22] MEDS: OMEGA-3 FATTY ACIDS/FISH OIL 1,000 MG CAPSULE. PO SCH ×2 (08:13→09:00)
[2017-06-22] MEDS: GLUCOSAMINE/CHOND 500/400MG CAPSULE PO SCH ×2 (08:13→09:00)
[2017-06-22] MEDS: amLODIPine BESYLATE 10 MG TABLET PO SCH ×2 (08:14→09:00)
[2017-06-22] MEDS: CHOLECALCIFEROL (VITAMIN D3) 1,000 UNIT TABLET PO SCH ×2 (08:14→09:00)
[2017-06-22] MEDS: ASCORBIC ACID 500 MG TABLET PO SCH ×2 (08:14→09:00)
[2017-06-22] MEDS: buPROPion XL 300 MG TAB.ER.24H. PO SCH (08:14)
[2017-06-22 15:51] VITALS: BP 140/95
[2017-06-22] MEDS: QUEtiapine 25 MG TABLET. PO SCH (19:19)
[2017-06-22] MEDS: ACETAMINOPHEN 325 MG TABLET PO SCH (19:19)
[2017-06-22] MEDS: DOCUSATE SODIUM 100 MG CAPSULE PO SCH (19:19)
--- NOTE | 2017-06-22 21:16 | PN ---
DATE: 06/21/2017 This late entry of 06/21/2017 covers elements not covered in my initial note. SUBJECTIVE: I met with the patient evening of 06/21/2017 at length. Per nursing report, she has been withdrawn, not participating in groups, somewhat confused and depressed. No CV, , pulmonary, eye system symptoms on review. MENTAL STATUS EXAM: Oriented to herself and situation. Speech moderate latency, often responses monosyllabic. Abstraction fair, computation impaired, language function intact. She is oriented to place, situation, paranoid, and suspicious. Verbal responses monosyllabic. No active suicidal or homicidal ideation. IMPRESSION: Unchanged from initial note. PLAN: Continue Seroquel 50 at bedtime, Wellbutrin-XL 300 mg in the morning, Xanax p.r.n. Consider changing Seroquel to Abilify the Wellbutrin depending on how she does over the next day or so. Review of drug interactions risk/benefit ratio favors no further change as of now. MAN Lula CHIN MD DR: JAVI/sebastian JOB#: [id number] / [id number]
--- NOTE | 2017-06-22 23:25 | PDOC ---
Exam Michael Demential Exam: Michael Note: Please also refer to the separate dictated note~for this date of service dictated separately.~Patient seen individually. Discussed the patient with Nursing staff reviewed the chart.~Reviewed interim history and current functioning. Reviewed vital signs,~Labs/ Radiology~and current medications noted below. Continue current treatment with the changes noted in the dictated addendum note Assessment: Vital Signs: Vital Signs Date Time Temp Pulse Resp B/P (MAP) Pulse Ox O2 Delivery O2 Flow Rate FiO2 06/22/17 15:51 98.3 65 18 140/95 (110) 96 06/22/17 06:12 Room Air I&O Intake and Output 06/22/17 07:00 Intake Total 1440 ml Balance 1440 ml Intake Oral 1440 ml # Voids 1 Current Medications: Meds: Current Medications Alprazolam (Xanax) 0.25 mg PRN QHS PRN PO Mild Anxiety Last administered on 17:42; Start 06/16/17 at 23:00 Alprazolam (Xanax) 0.5 mg PRN QHS PRN PO Severe Agitation Last administered on 06/19/17 01:36; Start 06/16/17 at 23:00 Amlodipine Besylate (Norvasc) 10 mg DAILY PO Last administered on 06/20/17 10: 06; Start 06/17/17 at 14:00 Ascorbic Acid (Vitamin C) 1,000 mg DAILY PO Last administered on 06/21/17 08: 11; Start 06/17/17 at 14:00 Vitamin D (Vitamin D3) 1,000 unit DAILY PO Last administered on 06/21/17 08:11 ; Start 06/17/17 at 14:00 Cyanocobalamin (Vitamin B-12) 1,000 mcg DAILY PO Last administered on 07:54; Start 06/17/17 at 14:00 Docusate Sodium (Colace) 100 mg QHS PO Last administered on 06/22/17 19:19; Start 06/17/17 at 21:00 Levothyroxine Sodium (Synthroid) 137 mcg DAILY06 PO Last administered on 05:59; Start 06/18/17 at 06:00 Losartan Potassium (Cozaar) 25 mg DAILY PO ; Start 06/18/17 at 09:00; Stop 06/18 at 09:00; Status DC Senna/Docusate Sodium (Senna Plus) 1 tab PRN DAILY PRN PO CONSTIPATION Last administered on 06/20/17 21:10; Start 06/17/17 at 13:45 Acetaminophen (Tylenol) 1,300 mg QHS PO Last administered on 06/22/17 19:19; Start 06/17/17 at 21:00 Glucosamine/ Chondroitin (Glucosamine-Chondroitin 500/400mg) 2 cap DAILY PO Last administered on 06/21/17 08:11; Start 06/17/17 at 21:00 Fish Oil (Fish Oil) 1,000 mg DAILY PO Last administered on 06/21/17 08:11; Start 06/17/17 at 14:00 Bupropion HCl (Wellbutrin Xl) 150 mg DAILY PO Last administered on 06/20/17 10 :06; Start 06/18/17 at 09:00; Stop 06/20/17 at 11:07; Status DC Quetiapine Fumarate (SEROquel) 25 mg QHS PO Last administered on 06/18/17 20: 28; Start 06/17/17 at 21:00; Stop 06/19/17 at 18:24; Status DC Artificial Tears (Artificial Tears) 1 drop PRN QID PRN OU DRY EYE Last administered on 06/20/17 12:39; Start 06/17/17 at 19:15 Quetiapine Fumarate (SEROquel) 50 mg QHS PO Last administered on 06/22/17 19: 19; Start 06/19/17 at 21:00 Bupropion HCl (Wellbutrin Xl) 300 mg DAILY PO Last administered on 06/22/17 08 :14; Start 06/21/17 at 09:00 Active Scripts Active Reported Arthritis Pain (Acetaminophen) 650 Mg Tablet.er 1,300 Mg PO QHS Sennosides-Docusate Sodium Tab (Sennosides/Docusate Sodium) 1 Each Tablet 1 Tab PO PRN DAILY PRN Colace (Docusate Sodium) 100 Mg Capsule 100 Mg PO QHS Vitamin D3 (Cholecalciferol (Vitamin D3)) 1,000 Unit Tablet 1,000 Unit PO DAILY Vitamin B-12 (Cyanocobalamin (Vitamin B-12)) 1,000 Mcg Tablet 1,000 Mcg PO DAILY Glucosamine Chondroitin [place] (Glucosa [place] 2KCL/Chondroitin [place]ady) 1 Each Tablet 2 Cap PO DAILY Vitamin C (Ascorbic Acid) 500 Mg Tablet 1,000 Mg PO DAILY [place] 3 1,000 Mg Softgel ([place]-3 Fatty Acids/Fish Oil) 1 Each Capsule 1 Cap PO DAILY Xanax (Alprazolam) 0.5 Mg Tablet 0.5 Mg PO PRN QHS PRN Xanax (Alprazolam) 0.25 Mg Tablet 0.25 Mg PO PRN QHS PRN Levothyroxine Sodium 137 Mcg Tablet 137 Mcg PO DAILY07 Amlodipine Besylate 10 Mg Tablet 10 Mg PO DAILY Losartan Potassium 25 Mg Tablet 25 Mg PO DAILY Diagnosis: Problems: (1) Anxiety disorder (2) Psychotic depression (3) Major depressive disorder, recurrent episode (4) Mild cognitive disorder RACHELLE CHIN MD Jun 22, 2017 23:25
[2017-06-23] MEDS: LEVOTHYROXINE 137 MCG TABLET PO SCH (05:27)
[2017-06-23 05:44] VITALS: BP 149/75
[2017-06-23 06:59] LABS: BASO # 0.1 x10^3/uL (0.0-0.2); BASO % 1 % (0-3); EOS # 0.2 x10^3/uL (0.0-0.7); EOS % 4 % (0-3); HEMATOCRIT 42.6 % (36.0-47.0); HEMOGLOBIN 14.2 g/dL (12.0-15.5); LYMPH # 1.8 x10^3/uL (1.0-4.8); LYMPH % 35 % (24-48); MEAN CORPUSCULAR HEMOGLOBIN 32 pg (25-35); MEAN CORPUSCULAR HGB CONC 33 g/dL (31-37); MEAN CORPUSCULAR VOLUME 96 fL (79-100); MONO # 0.5 x10^3/uL (0.0-1.1); MONO % 9 % (0-9); NEUT # 2.6 x10^3uL (1.8-7.7); NEUT % 52 % (31-73); PLATELET COUNT 120 x10^3/uL (140-400); RED BLOOD COUNT 4.42 x10^6/uL (3.50-5.40); RED CELL DISTRIBUTION WIDTH 13.3 % (11.5-14.5); WHITE BLOOD COUNT 5.1 x10^3/uL (4.0-11.0)
[2017-06-23 07:13] LABS: ALBUMIN 3.6 g/dL (3.4-5.0); CALCIUM 8.9 mg/dL (8.5-10.1); CREATININE 1.8 mg/dL (0.6-1.0); GFR 27.2; MAGNESIUM 2.2 mg/dL (1.8-2.4); POTASSIUM 4.4 mmol/L (3.5-5.1); TOTAL BILIRUBIN 0.7 mg/dL (0.2-1.0); TOTAL PROTEIN 7.1 g/dL (6.4-8.2)
[2017-06-23] MEDS: ASCORBIC ACID 500 MG TABLET PO SCH (09:00)
[2017-06-23] MEDS: GLUCOSAMINE/CHOND 500/400MG CAPSULE PO SCH (09:00)
[2017-06-23] MEDS: CYANOCOBALAMIN (VITAMIN B-12) 1,000 MCG TABLET. PO SCH (09:00)
[2017-06-23] MEDS: OMEGA-3 FATTY ACIDS/FISH OIL 1,000 MG CAPSULE. PO SCH (09:00)
[2017-06-23] MEDS: CHOLECALCIFEROL (VITAMIN D3) 1,000 UNIT TABLET PO SCH (09:00)
[2017-06-23] MEDS: buPROPion XL 300 MG TAB.ER.24H. PO SCH (09:03)
[2017-06-23] MEDS: amLODIPine BESYLATE 10 MG TABLET PO SCH (09:04)
[2017-06-23 16:20] VITALS: BP 131/91
[2017-06-23] MEDS: DOCUSATE SODIUM 100 MG CAPSULE PO SCH ×2 (19:42→21:00)
[2017-06-23] MEDS: ACETAMINOPHEN 325 MG TABLET PO SCH ×2 (19:42→21:00)
[2017-06-23] MEDS: ARIPiprazole 5 MG TABLET PO SCH (19:43)
--- NOTE | 2017-06-23 19:52 | PDOC ---
Exam Michael Demential Exam: Michael Note: Please also refer to the separate dictated note~for this date of service dictated separately.~Patient seen individually. Discussed the patient with Nursing staff reviewed the chart.~Reviewed interim history and current functioning. Reviewed vital signs,~Labs/ Radiology~and current medications noted below. Continue current treatment with the changes noted in the dictated addendum note Assessment: Vital Signs: Vital Signs Date Time Temp Pulse Resp B/P (MAP) Pulse Ox O2 Delivery O2 Flow Rate FiO2 06/23/17 16:20 98.0 69 18 131/91 (104) 97 Room Air I&O Intake and Output 06/23/17 07:00 Intake Total 710 ml Balance 710 ml Intake Oral 710 ml # Voids 1 Labs: Laboratory Tests Test 06/23/17 06:20 White Blood Count 5.1 x10^3/uL (4.0-11.0) Red Blood Count 4.42 x10^6/uL (3.50-5.40) Hemoglobin 14.2 g/dL (12.0-15.5) Hematocrit 42.6 % (36.0-47.0) Mean Corpuscular Volume 96 fL (79-100) Mean Corpuscular Hemoglobin 32 pg (25-35) Mean Corpuscular Hemoglobin Concent 33 g/dL (31-37) Red Cell Distribution Width 13.3 % (11.5-14.5) Platelet Count 120 x10^3/uL (140-400) L Neutrophils (%) (Auto) 52 % (31-73) Lymphocytes (%) (Auto) 35 % (24-48) Monocytes (%) (Auto) 9 % (0-9) Eosinophils (%) (Auto) 4 % (0-3) H Basophils (%) (Auto) 1 % (0-3) Neutrophils # (Auto) 2.6 x10^3uL (1.8-7.7) Lymphocytes # (Auto) 1.8 x10^3/uL (1.0-4.8) Monocytes # (Auto) 0.5 x10^3/uL (0.0-1.1) Eosinophils # (Auto) 0.2 x10^3/uL (0.0-0.7) Basophils # (Auto) 0.1 x10^3/uL (0.0-0.2) Sodium Level 141 mmol/L (136-145) Potassium Level 4.4 mmol/L (3.5-5.1) Chloride Level 104 mmol/L (98-107) Carbon Dioxide Level 29 mmol/L (21-32) Anion Gap 8 (6-14) Blood Urea Nitrogen 34 mg/dL (7-20) H Creatinine 1.8 mg/dL (0.6-1.0) H Estimated GFR (Cockcroft-Gault) 27.2 BUN/Creatinine Ratio 19 (6-20) Glucose Level 104 mg/dL (70-99) H Calcium Level 8.9 mg/dL (8.5-10.1) Magnesium Level 2.2 mg/dL (1.8-2.4) Total Bilirubin 0.7 mg/dL (0.2-1.0) Aspartate Amino Transferase (AST) 16 U/L (15-37) Alanine Aminotransferase (ALT) 19 U/L (14-59) Alkaline Phosphatase 64 U/L (46-116) Total Protein 7.1 g/dL (6.4-8.2) Albumin 3.6 g/dL (3.4-5.0) Albumin/Globulin Ratio 1.0 (1.0-1.7) Current Medications: Meds: Current Medications Alprazolam (Xanax) 0.25 mg PRN QHS PRN PO Mild Anxiety Last administered on 17:42; Start 06/16/17 at 23:00 Alprazolam (Xanax) 0.5 mg PRN QHS PRN PO Severe Agitation Last administered on 06/19/17 01:36; Start 06/16/17 at 23:00 Amlodipine Besylate (Norvasc) 10 mg DAILY PO Last administered on 06/23/17 09: 04; Start 06/17/17 at 14:00 Ascorbic Acid (Vitamin C) 1,000 mg DAILY PO Last administered on 06/21/17 08: 11; Start 06/17/17 at 14:00 Vitamin D (Vitamin D3) 1,000 unit DAILY PO Last administered on 06/21/17 08:11 ; Start 06/17/17 at 14:00 Cyanocobalamin (Vitamin B-12) 1,000 mcg DAILY PO Last administered on 07:54; Start 06/17/17 at 14:00 Docusate Sodium (Colace) 100 mg QHS PO Last administered on 06/23/17 19:42; Start 06/17/17 at 21:00 Levothyroxine Sodium (Synthroid) 137 mcg DAILY06 PO Last administered on 05:27; Start 06/18/17 at 06:00 Losartan Potassium (Cozaar) 25 mg DAILY PO ; Start 06/18/17 at 09:00; Stop 06/18 at 09:00; Status DC Senna/Docusate Sodium (Senna Plus) 1 tab PRN DAILY PRN PO CONSTIPATION Last administered on 06/20/17 21:10; Start 06/17/17 at 13:45 Acetaminophen (Tylenol) 1,300 mg QHS PO Last administered on 06/23/17 19:42; Start 06/17/17 at 21:00 Glucosamine/ Chondroitin (Glucosamine-Chondroitin 500/400mg) 2 cap DAILY PO Last administered on 06/21/17 08:11; Start 06/17/17 at 21:00 Fish Oil (Fish Oil) 1,000 mg DAILY PO Last administered on 06/21/17 08:11; Start 06/17/17 at 14:00 Bupropion HCl (Wellbutrin Xl) 150 mg DAILY PO Last administered on 06/20/17 10 :06; Start 06/18/17 at 09:00; Stop 06/20/17 at 11:07; Status DC Quetiapine Fumarate (SEROquel) 25 mg QHS PO Last administered on 06/18/17 20: 28; Start 06/17/17 at 21:00; Stop 06/19/17 at 18:24; Status DC Artificial Tears (Artificial Tears) 1 drop PRN QID PRN OU DRY EYE Last administered on 06/20/17 12:39; Start 06/17/17 at 19:15 Quetiapine Fumarate (SEROquel) 50 mg QHS PO Last administered on 06/22/17 19: 19; Start 06/19/17 at 21:00; Stop 06/23/17 at 19:28; Status DC Bupropion HCl (Wellbutrin Xl) 300 mg DAILY PO Last administered on 06/23/17 09 :03; Start 8/18/17 at 09:00 Aripiprazole (Abilify) 5 mg DAILY PO Last administered on 06/23/17t 19:43; Start 06/23/17 at 20:00 Active Scripts Active Reported Arthritis Pain (Acetaminophen) 650 Mg Tablet.er 1,300 Mg PO QHS Sennosides-Docusate Sodium Tab (Sennosides/Docusate Sodium) 1 Each Tablet 1 Tab PO PRN DAILY PRN Colace (Docusate Sodium) 100 Mg Capsule 100 Mg PO QHS Vitamin D3 (Cholecalciferol (Vitamin D3)) 1,000 Unit Tablet 1,000 Unit PO DAILY Vitamin B-12 (Cyanocobalamin (Vitamin B-12)) 1,000 Mcg Tablet 1,000 Mcg PO DAILY Glucosamine Chondroitin [place] (Glucosa [place] 2KCL/Chondroitin [place]) 1 Each Tablet 2 Cap PO DAILY Vitamin C (Ascorbic Acid) 500 Mg Tablet 1,000 Mg PO DAILY [place] 3 1,000 Mg Softgel ([place]-3 Fatty Acids/Fish Oil) 1 Each Capsule 1 Cap PO DAILY Xanax (Alprazolam) 0.5 Mg Tablet 0.5 Mg PO PRN QHS PRN Xanax (Alprazolam) 0.25 Mg Tablet 0.25 Mg PO PRN QHS PRN Levothyroxine Sodium 137 Mcg Tablet 137 Mcg PO DAILY07 Amlodipine Besylate 10 Mg Tablet 10 Mg PO DAILY Losartan Potassium 25 Mg Tablet 25 Mg PO DAILY Diagnosis: Problems: (1) Anxiety disorder (2) Psychotic depression (3) Major depressive disorder, recurrent episode RACHELLE CHIN MD Jun 23, 2017 19:52
--- NOTE | 2017-06-24 00:14 | PN ---
DATE: 06/22/2017 This is a late entry for 06/22/2017 covers elements not covered in my initial note. SUBJECTIVE: I met with the patient in the evening of 06/22/2017. She has been flat, somewhat depressed, withdrawn, not eating, compliant with morning medications, compliant with Seroquel the previous evening. As I met with her, she complained of being tired. REVIEW OF SYSTEMS: Ambulation impaired with walker. No CV, , pulmonary, eye system symptoms on review. MENTAL STATUS EXAM: Oriented to herself and situation. Speech has some latency, often responses monosyllabic, coherent. Abstraction fair, computation impaired, language function intact, attention span short, mood and affect depressed. No active suicidal or homicidal ideation. Somewhat paranoid. LABORATORY DATA: Reviewed. IMPRESSION: Major depressive disorder with psychotic features, mild cognitive impairment. Rest unchanged as before. PLAN: We will start the patient on Abilify 5 mg a day in place of Seroquel and add trazodone 50 mg at bedtime p.r.n. May repeat x 1 for insomnia. Review drug interactions. Risk/benefit ratio favors no further change at this time. MAN Lula CHIN MD DR: JAVI/sebastian JOB#: [id number] / [id number]
[2017-06-24] MEDS: ALPRAZolam 0.25 MG TABLET PO PRN (00:45)
[2017-06-24] MEDS: LEVOTHYROXINE 137 MCG TABLET PO SCH (05:56)
[2017-06-24 06:07] VITALS: BP 112/67
[2017-06-24] MEDS: CYANOCOBALAMIN (VITAMIN B-12) 1,000 MCG TABLET. PO SCH (08:39)
[2017-06-24] MEDS: OMEGA-3 FATTY ACIDS/FISH OIL 1,000 MG CAPSULE. PO SCH (08:39)
[2017-06-24] MEDS: ASCORBIC ACID 500 MG TABLET PO SCH (08:39)
[2017-06-24] MEDS: POLYVINYL ALCOHOL 1.4% OPHTH SOLUTION 15ML BOTTLE. OU PRN ×3 (08:39→20:18)
[2017-06-24] MEDS: amLODIPine BESYLATE 10 MG TABLET PO SCH (08:39)
[2017-06-24] MEDS: GLUCOSAMINE/CHOND 500/400MG CAPSULE PO SCH (08:39)
[2017-06-24] MEDS: ARIPiprazole 5 MG TABLET PO SCH (08:40)
[2017-06-24] MEDS: buPROPion XL 300 MG TAB.ER.24H. PO SCH (08:40)
[2017-06-24] MEDS: CHOLECALCIFEROL (VITAMIN D3) 1,000 UNIT TABLET PO SCH (08:40)
[2017-06-24 16:05] VITALS: BP 113/77
[2017-06-24] MEDS: ACETAMINOPHEN 325 MG TABLET PO SCH (20:09)
[2017-06-24] MEDS: DOCUSATE SODIUM 100 MG CAPSULE PO SCH (20:09)
[2017-06-24] MEDS: SENNOSIDES/DOCUSATE 8.6/50MG TABLET. PO PRN (20:18)
--- NOTE | 2017-06-25 00:23 | PN ---
DATE: 06/23/2017 This late entry 06/23/2017, covers elements not covered in my initial note. I met with the patient the evening of 06/23/2017. Overall, the patient has been somewhat sedated, complains that she feels tired. BUN and creatinine have improved from 36/1.8 to 26/1.4. REVIEW OF SYSTEMS: Ambulation impaired with a walker, tiredness. No CV, , pulmonary, system symptoms on review. MENTAL STATUS EXAM: Oriented to herself and situation. Speech moderate latency, often responses monosyllabic, low in rate and rhythm, low in volume. Abstraction fair, computation impaired, language function intact, attention span short, mood and affect withdrawn. LABORATORY DATA: Reviewed. IMPRESSION: Unchanged from initial note. Major depressive disorder with psychotic features; cognitive disorder, unspecified versus mild cognitive impairment. PLAN: Given her sedation, we will change the Seroquel to Abilify 5 mg a day to augment the Wellbutrin-XL 300 mg daily. Continue Xanax at current dosage and may need to increase Wellbutrin further or use an SNRI agent. Review of drug interactions risk/benefit ratio favors no further change. RACHELLE CHIN MD DR: JAVI/sebastian JOB#: [id number] / [id number]
[2017-06-25 05:55] VITALS: BP 136/75
[2017-06-25] MEDS: LEVOTHYROXINE 137 MCG TABLET PO SCH (06:12)
[2017-06-25] MEDS: buPROPion XL 300 MG TAB.ER.24H. PO SCH ×2 (08:00→09:00)
[2017-06-25] MEDS: OMEGA-3 FATTY ACIDS/FISH OIL 1,000 MG CAPSULE. PO SCH ×2 (08:00→09:00)
[2017-06-25] MEDS: CYANOCOBALAMIN (VITAMIN B-12) 1,000 MCG TABLET. PO SCH ×2 (08:00→09:00)
[2017-06-25] MEDS: ASCORBIC ACID 500 MG TABLET PO SCH ×2 (08:00→09:00)
[2017-06-25] MEDS: amLODIPine BESYLATE 10 MG TABLET PO SCH ×2 (08:01→09:00)
[2017-06-25] MEDS: CHOLECALCIFEROL (VITAMIN D3) 1,000 UNIT TABLET PO SCH ×2 (08:01→09:00)
[2017-06-25] MEDS: ARIPiprazole 5 MG TABLET PO SCH ×2 (08:01→09:00)
[2017-06-25] MEDS: GLUCOSAMINE/CHOND 500/400MG CAPSULE PO SCH ×2 (08:01→09:00)
[2017-06-25 16:08] VITALS: BP 131/71
--- NOTE | 2017-06-25 18:48 | PDOC ---
Exam Michael Demential Exam: Michael Note: Please also refer to the separate dictated note~for this date of service dictated separately.~Patient seen individually. Discussed the patient with Nursing staff reviewed the chart.~Reviewed interim history and current functioning. Reviewed vital signs,~Labs/ Radiology~and current medications noted below. Continue current treatment with the changes noted in the dictated addendum note Assessment: Vital Signs: Vital Signs Date Time Temp Pulse Resp B/P (MAP) Pulse Ox O2 Delivery O2 Flow Rate FiO2 06/25/17 16:08 97.2 85 20 131/71 (91) 98 06/25/17 05:55 Room Air I&O Intake and Output 06/25/17 07:00 Intake Total 1080 ml Balance 1080 ml Intake Oral 1080 ml Current Medications: Meds: Current Medications Alprazolam (Xanax) 0.25 mg PRN QHS PRN PO Mild Anxiety Last administered on 00:45; Start 06/16/17 at 23:00 Alprazolam (Xanax) 0.5 mg PRN QHS PRN PO Severe Agitation Last administered on 06/19/17 01:36; Start 06/16/17 at 23:00 Amlodipine Besylate (Norvasc) 10 mg DAILY PO Last administered on 06/24/17 08: 39; Start 06/17/17 at 14:00 Ascorbic Acid (Vitamin C) 1,000 mg DAILY PO Last administered on 06/24/17 08: 39; Start 06/17/17 at 14:00 Vitamin D (Vitamin D3) 1,000 unit DAILY PO Last administered on 06/24/17 08:40 ; Start 06/17/17 at 14:00 Cyanocobalamin (Vitamin B-12) 1,000 mcg DAILY PO Last administered on 08:39; Start 06/17/17 at 14:00 Docusate Sodium (Colace) 100 mg QHS PO Last administered on 06/24/17 20:09; Start 06/17/17 at 21:00 Levothyroxine Sodium (Synthroid) 137 mcg DAILY06 PO Last administered on 06:12; Start 06/18/17 at 06:00 Losartan Potassium (Cozaar) 25 mg DAILY PO ; Start 06/18/17 at 09:00; Stop 06/18 at 09:00; Status DC Senna/Docusate Sodium (Senna Plus) 1 tab PRN DAILY PRN PO CONSTIPATION Last administered on 06/24/17 20:18; Start 06/17/17 at 13:45 Acetaminophen (Tylenol) 1,300 mg QHS PO Last administered on 06/24/17 20:09; Start 06/17/17 at 21:00 Glucosamine/ Chondroitin (Glucosamine-Chondroitin 500/400mg) 2 cap DAILY PO Last administered on 06/24/17 08:39; Start 06/17/17 at 21:00 Fish Oil (Fish Oil) 1,000 mg DAILY PO Last administered on 06/24/17 08:39; Start 06/17/17 at 14:00 Bupropion HCl (Wellbutrin Xl) 150 mg DAILY PO Last administered on 06/20/17 10 :06; Start 06/18/17 at 09:00; Stop 06/20/17 at 11:07; Status DC Quetiapine Fumarate (SEROquel) 25 mg QHS PO Last administered on 06/18/17 20: 28; Start 06/17/17 at 21:00; Stop 06/19/17 at 18:24; Status DC Artificial Tears (Artificial Tears) 1 drop PRN QID PRN OU DRY EYE Last administered on 06/24/17 20:18; Start 06/17/17 at 19:15 Quetiapine Fumarate (SEROquel) 50 mg QHS PO Last administered on 06/22/17 19: 19; Start 06/19/17 at 21:00; Stop 06/23/17 at 19:28; Status DC Bupropion HCl (Wellbutrin Xl) 300 mg DAILY PO Last administered on 06/24/17 08 :40; Start 06/21/17 at 09:00 Aripiprazole (Abilify) 5 mg DAILY PO Last administered on 06/24/17 08:40; Start 06/23/17 at 20:00 Active Scripts Active Reported Arthritis Pain (Acetaminophen) 650 Mg Tablet.er 1,300 Mg PO QHS Sennosides-Docusate Sodium Tab (Sennosides/Docusate Sodium) 1 Each Tablet 1 Tab PO PRN DAILY PRN Colace (Docusate Sodium) 100 Mg Capsule 100 Mg PO QHS Vitamin D3 (Cholecalciferol (Vitamin D3)) 1,000 Unit Tablet 1,000 Unit PO DAILY Vitamin B-12 (Cyanocobalamin (Vitamin B-12)) 1,000 Mcg Tablet 1,000 Mcg PO DAILY Glucosamine Chondroitin Caplet (Glucosa [place]ady 2KCL/Chondroitin Grady) 1 Each Tablet 2 Cap PO DAILY Vitamin C (Ascorbic Acid) 500 Mg Tablet 1,000 Mg PO DAILY [place] 3 1,000 Mg Softgel ([place]-3 Fatty Acids/Fish Oil) 1 Each Capsule 1 Cap PO DAILY Xanax (Alprazolam) 0.5 Mg Tablet 0.5 Mg PO PRN QHS PRN Xanax (Alprazolam) 0.25 Mg Tablet 0.25 Mg PO PRN QHS PRN Levothyroxine Sodium 137 Mcg Tablet 137 Mcg PO DAILY07 Amlodipine Besylate 10 Mg Tablet 10 Mg PO DAILY Losartan Potassium 25 Mg Tablet 25 Mg PO DAILY Diagnosis: Problems: (1) Mild cognitive disorder (2) Major depressive disorder, recurrent episode (3) Psychotic depression (4) Anxiety disorder RACHELLE CHIN MD Jun 25, 2017 18:48
[2017-06-25] MEDS: ACETAMINOPHEN 325 MG TABLET PO SCH (19:49)
[2017-06-25] MEDS: DOCUSATE SODIUM 100 MG CAPSULE PO SCH (19:49)
[2017-06-25] MEDS: POLYVINYL ALCOHOL 1.4% OPHTH SOLUTION 15ML BOTTLE. OU PRN (21:05)
[2017-06-25] MEDS: ALPRAZolam 0.25 MG TABLET PO PRN (21:21)
--- NOTE | 2017-06-26 03:37 | PN ---
DATE: 06/24/2017 This is a late entry for 06/24 and covers the elements not covered in my initial note. SUBJECTIVE: I met with the patient in the evening of 06/24/2017. The patient is compliant with her medications, had a conversation with her daughter, attended physical therapy, occupational therapy, answered 20/20 questions on safety accurately, more animated, verbal per nursing report and this is evident as I met with her at length the evening of 06/24/2017 as well. REVIEW OF SYSTEMS: No CV, , pulmonary, eye, ENT system symptoms on review. Reliability fair. MENTAL STATUS EXAM: Reasonably oriented. Speech more forthcoming, less latency. Abstraction fair, computation impaired, language function intact. Attention span is improved. Mood and affect certainly seems better, brighter. We will see over the next 2-3 days how she does. No active suicidal or homicidal ideation. LABORATORY DATA: Reviewed. IMPRESSION: Unchanged from initial note. PLAN: Continue psychotropics mentioned in my initial, Wellbutrin, Abilify and Xanax p.r.n. Reviewed drug interactions at length. RACHELLE CHIN MD DR: JAVI/sebastian JOB#: [id number] / [id number]
[2017-06-26 06:25] VITALS: BP 169/94
[2017-06-26] MEDS: LEVOTHYROXINE 137 MCG TABLET PO SCH (06:27)
[2017-06-26] MEDS: buPROPion XL 300 MG TAB.ER.24H. PO SCH (10:23)
[2017-06-26] MEDS: amLODIPine BESYLATE 10 MG TABLET PO SCH (10:23)
[2017-06-26] MEDS: ARIPiprazole 5 MG TABLET PO SCH (10:23)
[2017-06-26] MEDS: OMEGA-3 FATTY ACIDS/FISH OIL 1,000 MG CAPSULE. PO SCH (10:31)
[2017-06-26] MEDS: GLUCOSAMINE/CHOND 500/400MG CAPSULE PO SCH (10:31)
[2017-06-26] MEDS: CYANOCOBALAMIN (VITAMIN B-12) 1,000 MCG TABLET. PO SCH (10:31)
[2017-06-26] MEDS: CHOLECALCIFEROL (VITAMIN D3) 1,000 UNIT TABLET PO SCH (10:32)
[2017-06-26] MEDS: ASCORBIC ACID 500 MG TABLET PO SCH (10:32)
[2017-06-26 16:27] VITALS: BP 121/84
--- NOTE | 2017-06-26 18:32 | PDOC ---
Exam Michael Demential Exam: Michael Note: Please also refer to the separate dictated note~for this date of service dictated separately.~Patient seen individually. Discussed the patient with Nursing staff reviewed the chart.~Reviewed interim history and current functioning. Reviewed vital signs,~Labs/ Radiology~and current medications noted below. Continue current treatment with the changes noted in the dictated addendum note Assessment: Vital Signs: Vital Signs Date Time Temp Pulse Resp B/P (MAP) Pulse Ox O2 Delivery O2 Flow Rate FiO2 06/26/17 16:27 98.6 80 20 121/84 (96) 96 06/25/17 05:55 Room Air I&O Intake and Output 06/26/17 07:00 Intake Total 1080 ml Balance 1080 ml Intake Oral 1080 ml Current Medications: Meds: Current Medications Alprazolam (Xanax) 0.25 mg PRN QHS PRN PO Mild Anxiety Last administered on 21:21; Start 06/16/17 at 23:00 Alprazolam (Xanax) 0.5 mg PRN QHS PRN PO Severe Agitation Last administered on 06/19/17 01:36; Start 06/16/17 at 23:00 Amlodipine Besylate (Norvasc) 10 mg DAILY PO Last administered on 06/26/17 10: 23; Start 06/17/17 at 14:00 Ascorbic Acid (Vitamin C) 1,000 mg DAILY PO Last administered on 06/24/17 08: 39; Start 06/17/17 at 14:00 Vitamin D (Vitamin D3) 1,000 unit DAILY PO Last administered on 06/24/17 08:40 ; Start 06/17/17 at 14:00 Cyanocobalamin (Vitamin B-12) 1,000 mcg DAILY PO Last administered on 08:39; Start 06/17/17 at 14:00 Docusate Sodium (Colace) 100 mg QHS PO Last administered on 06/25/17 19:49; Start 06/17/17 at 21:00 Levothyroxine Sodium (Synthroid) 137 mcg DAILY06 PO Last administered on 06:27; Start 06/18/17 at 06:00 Losartan Potassium (Cozaar) 25 mg DAILY PO ; Start 06/18/17 at 09:00; Stop 06/18 at 09:00; Status DC Senna/Docusate Sodium (Senna Plus) 1 tab PRN DAILY PRN PO CONSTIPATION Last administered on 06/24/17 20:18; Start 06/17/17 at 13:45 Acetaminophen (Tylenol) 1,300 mg QHS PO Last administered on 06/25/17 19:49; Start 06/17/17 at 21:00 Glucosamine/ Chondroitin (Glucosamine-Chondroitin 500/400mg) 2 cap DAILY PO Last administered on 06/24/17 08:39; Start 06/17/17 at 21:00 Fish Oil (Fish Oil) 1,000 mg DAILY PO Last administered on 06/24/17 08:39; Start 06/17/17 at 14:00 Bupropion HCl (Wellbutrin Xl) 150 mg DAILY PO Last administered on 06/20/17 10 :06; Start 06/18/17 at 09:00; Stop 06/20/17 at 11:07; Status DC Quetiapine Fumarate (SEROquel) 25 mg QHS PO Last administered on 06/18/17 20: 28; Start 06/17/17 at 21:00; Stop 06/19/17 at 18:24; Status DC Artificial Tears (Artificial Tears) 1 drop PRN QID PRN OU DRY EYE Last administered on 06/25/17 21:05; Start 06/17/17 at 19:15 Quetiapine Fumarate (SEROquel) 50 mg QHS PO Last administered on 06/22/17 19: 19; Start 06/19/17 at 21:00; Stop 06/23/17 at 19:28; Status DC Bupropion HCl (Wellbutrin Xl) 300 mg DAILY PO Last administered on 06/26/17 10 :23; Start 06/21/17 at 09:00; Stop 06/26/17 at 18:16; Status DC Aripiprazole (Abilify) 5 mg DAILY PO Last administered on 06/26/17 10:23; Start 06/23/17 at 20:00 Bupropion HCl (Wellbutrin Xl) 450 mg DAILY PO ; Start 06/27/17 at 09:00 Active Scripts Active Reported Arthritis Pain (Acetaminophen) 650 Mg Tablet.er 1,300 Mg PO QHS Sennosides-Docusate Sodium Tab (Sennosides/Docusate Sodium) 1 Each Tablet 1 Tab PO PRN DAILY PRN Colace (Docusate Sodium) 100 Mg Capsule 100 Mg PO QHS Vitamin D3 (Cholecalciferol (Vitamin D3)) 1,000 Unit Tablet 1,000 Unit PO DAILY Vitamin B-12 (Cyanocobalamin (Vitamin B-12)) 1,000 Mcg Tablet 1,000 Mcg PO DAILY Glucosamine Chondroitin [place] (Glucosa [place] 2KCL/Chondroitin [place]ady) 1 Each Tablet 2 Cap PO DAILY Vitamin C (Ascorbic Acid) 500 Mg Tablet 1,000 Mg PO DAILY [place] 3 1,000 Mg Softgel ([place]-3 Fatty Acids/Fish Oil) 1 Each Capsule 1 Cap PO DAILY Xanax (Alprazolam) 0.5 Mg Tablet 0.5 Mg PO PRN QHS PRN Xanax (Alprazolam) 0.25 Mg Tablet 0.25 Mg PO PRN QHS PRN Levothyroxine Sodium 137 Mcg Tablet 137 Mcg PO DAILY07 Amlodipine Besylate 10 Mg Tablet 10 Mg PO DAILY Losartan Potassium 25 Mg Tablet 25 Mg PO DAILY Diagnosis: Problems: (1) Mild cognitive disorder (2) Major depressive disorder, recurrent episode (3) Psychotic depression (4) Anxiety disorder RACHELLE CHIN MD Jun 26, 2017 18:32
[2017-06-26] MEDS: DOCUSATE SODIUM 100 MG CAPSULE PO SCH (20:28)
[2017-06-26] MEDS: ACETAMINOPHEN 325 MG TABLET PO SCH (20:28)
[2017-06-26] MEDS: POLYVINYL ALCOHOL 1.4% OPHTH SOLUTION 15ML BOTTLE. OU PRN (20:28)
[2017-06-26] MEDS: SENNOSIDES/DOCUSATE 8.6/50MG TABLET. PO PRN (20:39)
--- NOTE | 2017-06-27 03:08 | PN ---
DATE: 06/25/2017 This late entry 06/25/2017 covers elements not covered in my initial note of 06/25/2017. SUBJECTIVE: The patient was seen individually evening of 06/25/2017. The patient has been somewhat more withdrawn, isolative, depressed, refusing her medications and assessments and this is quite a change from the negative compared to 06/24/2017 when she was much more animated, verbal. Today, she was stating that her roommate was mean to her where as the previous day she was very positive about the roommate. REVIEW OF SYSTEMS: No CV, , pulmonary, eye system symptoms on review. Reliability is somewhat poor. MENTAL STATUS EXAM: Reasonably oriented. Speech, often responses monosyllabic, not very forthcoming, less animated. Abstraction fair, computation impaired, language function intact, attention span short. Mood and affect depressed, withdrawn. LABORATORY DATA: Reviewed. IMPRESSION: Major depressive disorder with psychotic features, recurrent, rest unchanged. PLAN: Continue current psychotropics, reviewed drug interactions, risk and benefit ratio discussed with the patient. We may need to increase the Wellbutrin to 450 mg a day, but we will see how she does over the next day or so. RACHELLE CHIN MD DR: JAVI/sebastian JOB#: [id number] / [id number]
[2017-06-27] MEDS: LEVOTHYROXINE 137 MCG TABLET PO SCH (06:09)
[2017-06-27 06:16] VITALS: BP 176/95
[2017-06-27] MEDS: POLYVINYL ALCOHOL 1.4% OPHTH SOLUTION 15ML BOTTLE. OU PRN ×2 (08:03→13:41)
[2017-06-27] MEDS: amLODIPine BESYLATE 10 MG TABLET PO SCH (10:01)
[2017-06-27] MEDS: ARIPiprazole 5 MG TABLET PO SCH (10:02)
[2017-06-27] MEDS: buPROPion XL 150 MG TAB.ER.24H PO SCH (10:09)
[2017-06-27] MEDS: GLUCOSAMINE/CHOND 500/400MG CAPSULE PO SCH (10:10)
[2017-06-27] MEDS: CYANOCOBALAMIN (VITAMIN B-12) 1,000 MCG TABLET. PO SCH (10:10)
[2017-06-27] MEDS: OMEGA-3 FATTY ACIDS/FISH OIL 1,000 MG CAPSULE. PO SCH (10:10)
[2017-06-27] MEDS: ASCORBIC ACID 500 MG TABLET PO SCH (10:11)
[2017-06-27] MEDS: CHOLECALCIFEROL (VITAMIN D3) 1,000 UNIT TABLET PO SCH (10:11)
[2017-06-27] MEDS: SENNOSIDES/DOCUSATE 8.6/50MG TABLET. PO PRN (13:45)
[2017-06-27 16:13] VITALS: BP 133/97
[2017-06-27] MEDS: DOCUSATE SODIUM 100 MG CAPSULE PO SCH (19:20)
[2017-06-27] MEDS: ACETAMINOPHEN 325 MG TABLET PO SCH (19:21)
--- NOTE | 2017-06-27 20:39 | PDOC ---
Exam Michael Demential Exam: Michael Note: Please also refer to the separate dictated note~for this date of service dictated separately.~Patient seen individually. Discussed the patient with Nursing staff reviewed the chart.~Reviewed interim history and current functioning. Reviewed vital signs,~Labs/ Radiology~and current medications noted below. Continue current treatment with the changes noted in the dictated addendum note Assessment: Vital Signs: Vital Signs Date Time Temp Pulse Resp B/P (MAP) Pulse Ox O2 Delivery O2 Flow Rate FiO2 06/27/17 16:13 98.7 78 18 133/97 (109) 94 06/25/17 05:55 Room Air I&O Intake and Output 06/27/17 07:00 Intake Total 1440 ml Balance 1440 ml Intake Oral 1440 ml Current Medications: Meds: Current Medications Alprazolam (Xanax) 0.25 mg PRN QHS PRN PO Mild Anxiety Last administered on 21:21; Start 06/16/17 at 23:00 Alprazolam (Xanax) 0.5 mg PRN QHS PRN PO Severe Agitation Last administered on 06/19/17 01:36; Start 06/16/17 at 23:00 Amlodipine Besylate (Norvasc) 10 mg DAILY PO Last administered on 06/27/17 10: 01; Start 06/17/17 at 14:00 Ascorbic Acid (Vitamin C) 1,000 mg DAILY PO Last administered on 06/24/17 08: 39; Start 06/17/17 at 14:00 Vitamin D (Vitamin D3) 1,000 unit DAILY PO Last administered on 06/24/17 08:40 ; Start 06/17/17 at 14:00 Cyanocobalamin (Vitamin B-12) 1,000 mcg DAILY PO Last administered on 08:39; Start 06/17/17 at 14:00 Docusate Sodium (Colace) 100 mg QHS PO Last administered on 06/27/17 19:20; Start 06/17/17 at 21:00 Levothyroxine Sodium (Synthroid) 137 mcg DAILY06 PO Last administered on 06:09; Start 06/18/17 at 06:00 Losartan Potassium (Cozaar) 25 mg DAILY PO ; Start 06/18/17 at 09:00; Stop 06/18 at 09:00; Status DC Senna/Docusate Sodium (Senna Plus) 1 tab PRN DAILY PRN PO CONSTIPATION Last administered on 06/27/17 13:45; Start 06/17/17 at 13:45 Acetaminophen (Tylenol) 1,300 mg QHS PO Last administered on 06/27/17 19:21; Start 06/17/17 at 21:00 Glucosamine/ Chondroitin (Glucosamine-Chondroitin 500/400mg) 2 cap DAILY PO Last administered on 06/24/17 08:39; Start 06/17/17 at 21:00 Fish Oil (Fish Oil) 1,000 mg DAILY PO Last administered on 06/24/17 08:39; Start 06/17/17 at 14:00 Bupropion HCl (Wellbutrin Xl) 150 mg DAILY PO Last administered on 06/20/17 10 :06; Start 06/18/17 at 09:00; Stop 06/20/17 at 11:07; Status DC Quetiapine Fumarate (SEROquel) 25 mg QHS PO Last administered on 06/18/17 20: 28; Start 06/17/17 at 21:00; Stop 06/19/17 at 18:24; Status DC Artificial Tears (Artificial Tears) 1 drop PRN QID PRN OU DRY EYE Last administered on 06/27/17 13:41; Start 06/17/17 at 19:15 Quetiapine Fumarate (SEROquel) 50 mg QHS PO Last administered on 06/22/17 19: 19; Start 06/19/17 at 21:00; Stop 06/23/17 at 19:28; Status DC Bupropion HCl (Wellbutrin Xl) 300 mg DAILY PO Last administered on 06/26/17 10 :23; Start 06/21/17 at 09:00; Stop 06/26/17 at 18:16; Status DC Aripiprazole (Abilify) 5 mg DAILY PO Last administered on 06/27/17 10:02; Start 06/23/17 at 20:00 Bupropion HCl (Wellbutrin Xl) 450 mg DAILY PO Last administered on 06/27/17 10 :09; Start 06/27/17 at 09:00 Active Scripts Active Reported Arthritis Pain (Acetaminophen) 650 Mg Tablet.er 1,300 Mg PO QHS Sennosides-Docusate Sodium Tab (Sennosides/Docusate Sodium) 1 Each Tablet 1 Tab PO PRN DAILY PRN Colace (Docusate Sodium) 100 Mg Capsule 100 Mg PO QHS Vitamin D3 (Cholecalciferol (Vitamin D3)) 1,000 Unit Tablet 1,000 Unit PO DAILY Vitamin B-12 (Cyanocobalamin (Vitamin B-12)) 1,000 Mcg Tablet 1,000 Mcg PO DAILY Glucosamine Chondroitin [place] (Glucosa [place] 2KCL/Chondroitin [place]) 1 Each Tablet 2 Cap PO DAILY Vitamin C (Ascorbic Acid) 500 Mg Tablet 1,000 Mg PO DAILY [place] 3 1,000 Mg Softgel ([place]-3 Fatty Acids/Fish Oil) 1 Each Capsule 1 Cap PO DAILY Xanax (Alprazolam) 0.5 Mg Tablet 0.5 Mg PO PRN QHS PRN Xanax (Alprazolam) 0.25 Mg Tablet 0.25 Mg PO PRN QHS PRN Levothyroxine Sodium 137 Mcg Tablet 137 Mcg PO DAILY07 Amlodipine Besylate 10 Mg Tablet 10 Mg PO DAILY Losartan Potassium 25 Mg Tablet 25 Mg PO DAILY Diagnosis: Problems: (1) Anxiety disorder (2) Psychotic depression (3) Major depressive disorder, recurrent episode RACHELLE HCIN MD Jun 27, 2017 20:39
--- NOTE | 2017-06-28 03:18 | PN ---
DATE: 06/26/2017 This is late entry for 06/26/2017, covers the elements not covered in my initial note of 06/26/2017. I met with the patient at the evening of 06/26/2017. Overall, per nursing report, the patient is in a little more animated interactive on 06/26/2017 as compared to the day earlier, but she has days when she does better than other days. She has taken her psychotropics with some persistence from nursing staff. REVIEW OF SYSTEMS: No CV, , pulmonary, eye, ENT system symptoms on review. MENTAL STATUS EXAM: Oriented to herself and situation. Speech moderate latency, often responses, monosyllabic, abstraction fair, computation impaired. She expressed a desire to have her family make decisions for her. 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 No CV, , pulmonary, eye system symptoms on review. MENTAL STATUS EXAM: Speech moderate latency, often responses, monosyllabic. Abstraction fair, computation impaired, language function intact. Mood and affect still withdrawn, depressed, but showing some slight improvement. No suicidal or homicidal ideation, IMPRESSION: Unchanged from initial note. PLAN: Increase Wellbutrin-XL to 450 mg a day. Continue Abilify 5 mg a day, Xanax p.r.n. Adjust further as clinically indicated. MAN Lula CHIN MD DR: JAVI/sebastian JOB#: [id number] / [id number]
[2017-06-28] MEDS: LEVOTHYROXINE 137 MCG TABLET PO SCH (05:57)
[2017-06-28 06:00] VITALS: BP 168/98
[2017-06-28] MEDS: GLUCOSAMINE/CHOND 500/400MG CAPSULE PO SCH ×2 (07:58→09:00)
[2017-06-28] MEDS: amLODIPine BESYLATE 10 MG TABLET PO SCH (07:58)
[2017-06-28] MEDS: ARIPiprazole 5 MG TABLET PO SCH (07:58)
[2017-06-28] MEDS: CHOLECALCIFEROL (VITAMIN D3) 1,000 UNIT TABLET PO SCH ×2 (07:58→09:00)
[2017-06-28] MEDS: OMEGA-3 FATTY ACIDS/FISH OIL 1,000 MG CAPSULE. PO SCH ×2 (07:59→09:00)
[2017-06-28] MEDS: CYANOCOBALAMIN (VITAMIN B-12) 1,000 MCG TABLET. PO SCH ×2 (07:59→09:00)
[2017-06-28] MEDS: ASCORBIC ACID 500 MG TABLET PO SCH ×2 (07:59→09:00)
[2017-06-28] MEDS: buPROPion XL 150 MG TAB.ER.24H PO SCH (07:59)
--- NOTE | 2017-06-28 10:13 | PDOC ---
Exam Michael Demential Exam: Michael Note: Please also refer to the separate dictated note~for this date of service dictated separately.~Patient seen individually. Discussed the patient with Nursing staff reviewed the chart.~Reviewed interim history and current functioning. Reviewed vital signs,~Labs/ Radiology~and current medications noted below. Continue current treatment with the changes noted in the dictated addendum note Assessment: Vital Signs: Vital Signs Date Time Temp Pulse Resp B/P (MAP) Pulse Ox O2 Delivery O2 Flow Rate FiO2 06/28/17 07:58 77 168/98 06/28/17 06:00 98.5 20 96 06/25/17 05:55 Room Air I&O Intake and Output 06/28/17 07:00 Intake Total 1200 ml Balance 1200 ml Intake Oral 1200 ml Current Medications: Meds: Current Medications Alprazolam (Xanax) 0.25 mg PRN QHS PRN PO Mild Anxiety Last administered on 21:21; Start 06/16/17 at 23:00 Alprazolam (Xanax) 0.5 mg PRN QHS PRN PO Severe Agitation Last administered on 06/19/17 01:36; Start 06/16/17 at 23:00 Amlodipine Besylate (Norvasc) 10 mg DAILY PO Last administered on 06/28/17 07: 58; Start 06/17/17 at 14:00 Ascorbic Acid (Vitamin C) 1,000 mg DAILY PO Last administered on 06/24/17 08: 39; Start 06/17/17 at 14:00 Vitamin D (Vitamin D3) 1,000 unit DAILY PO Last administered on 06/24/17 08:40 ; Start 06/17/17 at 14:00 Cyanocobalamin (Vitamin B-12) 1,000 mcg DAILY PO Last administered on 08:39; Start 06/17/17 at 14:00 Docusate Sodium (Colace) 100 mg QHS PO Last administered on 06/27/17 19:20; Start 06/17/17 at 21:00 Levothyroxine Sodium (Synthroid) 137 mcg DAILY06 PO Last administered on 05:57; Start 06/18/17 at 06:00 Losartan Potassium (Cozaar) 25 mg DAILY PO ; Start 06/18/17 at 09:00; Stop 06/18 at 09:00; Status DC Senna/Docusate Sodium (Senna Plus) 1 tab PRN DAILY PRN PO CONSTIPATION Last administered on 06/27/17 13:45; Start 06/17/17 at 13:45 Acetaminophen (Tylenol) 1,300 mg QHS PO Last administered on 06/27/17 19:21; Start 06/17/17 at 21:00 Glucosamine/ Chondroitin (Glucosamine-Chondroitin 500/400mg) 2 cap DAILY PO Last administered on 06/24/17 08:39; Start 06/17/17 at 21:00 Fish Oil (Fish Oil) 1,000 mg DAILY PO Last administered on 06/24/17 08:39; Start 06/17/17 at 14:00 Bupropion HCl (Wellbutrin Xl) 150 mg DAILY PO Last administered on 06/20/17 10 :06; Start 06/18/17 at 09:00; Stop 06/20/17 at 11:07; Status DC Quetiapine Fumarate (SEROquel) 25 mg QHS PO Last administered on 06/18/17 20: 28; Start 06/17/17 at 21:00; Stop 06/19/17 at 18:24; Status DC Artificial Tears (Artificial Tears) 1 drop PRN QID PRN OU DRY EYE Last administered on 06/27/17 13:41; Start 06/17/17 at 19:15 Quetiapine Fumarate (SEROquel) 50 mg QHS PO Last administered on 06/22/17 19: 19; Start 06/19/17 at 21:00; Stop 06/23/17 at 19:28; Status DC Bupropion HCl (Wellbutrin Xl) 300 mg DAILY PO Last administered on 06/26/17 10 :23; Start 06/21/17 at 09:00; Stop 06/26/17 at 18:16; Status DC Aripiprazole (Abilify) 5 mg DAILY PO Last administered on 06/28/17 07:58; Start 06/23/17 at 20:00 Bupropion HCl (Wellbutrin Xl) 450 mg DAILY PO Last administered on 06/28/17 07 :59; Start 06/27/17 at 09:00 Active Scripts Active Reported Arthritis Pain (Acetaminophen) 650 Mg Tablet.er 1,300 Mg PO QHS Sennosides-Docusate Sodium Tab (Sennosides/Docusate Sodium) 1 Each Tablet 1 Tab PO PRN DAILY PRN Colace (Docusate Sodium) 100 Mg Capsule 100 Mg PO QHS Vitamin D3 (Cholecalciferol (Vitamin D3)) 1,000 Unit Tablet 1,000 Unit PO DAILY Vitamin B-12 (Cyanocobalamin (Vitamin B-12)) 1,000 Mcg Tablet 1,000 Mcg PO DAILY Glucosamine Chondroitin [place] (Glucosa [place] 2KCL/Chondroitin [place]) 1 Each Tablet 2 Cap PO DAILY Vitamin C (Ascorbic Acid) 500 Mg Tablet 1,000 Mg PO DAILY [place] 3 1,000 Mg Softgel ([place]-3 Fatty Acids/Fish Oil) 1 Each Capsule 1 Cap PO DAILY Xanax (Alprazolam) 0.5 Mg Tablet 0.5 Mg PO PRN QHS PRN Xanax (Alprazolam) 0.25 Mg Tablet 0.25 Mg PO PRN QHS PRN Levothyroxine Sodium 137 Mcg Tablet 137 Mcg PO DAILY07 Amlodipine Besylate 10 Mg Tablet 10 Mg PO DAILY Losartan Potassium 25 Mg Tablet 25 Mg PO DAILY Diagnosis: Problems: (1) Mild cognitive disorder (2) Major depressive disorder, recurrent episode (3) Psychotic depression (4) Anxiety disorder RACHELLE CHIN MD Jun 28, 2017 10:13
[2017-06-28 15:54] VITALS: BP 139/90
--- NOTE | 2017-06-28 18:51 | PN ---
DATE: 06/27/2017 This note covers the elements not covered in my initial note of 06/27/2017. SUBJECTIVE: The patient was staffed at a treatment team meeting with the entire team morning of 06/27/2017 and the patient's 2 daughters Ray and the other daughter, attended the conference. We reviewed the patient's history at length, current medications including the increase of Wellbutrin. The patient has been a little more social more talkative, compliant with medications. Appetite 70-80%. I met with the patient evening of 06/27/2017 individually. No CV, , pulmonary, eye system symptoms on review. Ambulation impaired with walker. MENTAL STATUS EXAM: Oriented reasonably. Speech has some latency, low in volume, coherent, abstraction fair, computation impaired, language function intact. Mood and affect still depressed, somewhat paranoid, but less so than before. LABORATORY DATA: Reviewed. IMPRESSION: Unchanged from initial note. PLAN: Increase Wellbutrin-XL to 450 mg daily. Maintain Xanax p.r.n., Abilify 5 mg a day. Reviewed drug interactions, risk/benefit ratio favors no further changes of now. RACHELLE CHIN MD DR: JAVI/sebastian JOB#: [id number] / [id number]
[2017-06-28] MEDS: ACETAMINOPHEN 325 MG TABLET PO SCH (19:30)
[2017-06-28] MEDS: DOCUSATE SODIUM 100 MG CAPSULE PO SCH (19:30)
--- NOTE | 2017-06-28 19:51 | PDOC ---
Exam Michael Demential Exam: Michael Note: Please also refer to the separate dictated note~for this date of service dictated separately.~Patient seen individually. Discussed the patient with Nursing staff reviewed the chart.~Reviewed interim history and current functioning. Reviewed vital signs,~Labs/ Radiology~and current medications noted below. Continue current treatment with the changes noted in the dictated addendum note Assessment: Vital Signs: Vital Signs Date Time Temp Pulse Resp B/P (MAP) Pulse Ox O2 Delivery O2 Flow Rate FiO2 06/28/17 15:54 97.8 64 19 139/90 (106) 96 06/25/17 05:55 Room Air I&O Intake and Output 06/28/17 06:59 Intake Total 1200 ml Balance 1200 ml Intake Oral 1200 ml Current Medications: Meds: Current Medications Alprazolam (Xanax) 0.25 mg PRN QHS PRN PO Mild Anxiety Last administered on 21:21; Start 06/16/17 at 23:00 Alprazolam (Xanax) 0.5 mg PRN QHS PRN PO Severe Agitation Last administered on 06/19/17 01:36; Start 06/16/17 at 23:00 Amlodipine Besylate (Norvasc) 10 mg DAILY PO Last administered on 06/28/17 07: 58; Start 06/17/17 at 14:00 Ascorbic Acid (Vitamin C) 1,000 mg DAILY PO Last administered on 06/24/17 08: 39; Start 06/17/17 at 14:00 Vitamin D (Vitamin D3) 1,000 unit DAILY PO Last administered on 06/24/17 08:40 ; Start 06/17/17 at 14:00 Cyanocobalamin (Vitamin B-12) 1,000 mcg DAILY PO Last administered on 08:39; Start 06/17/17 at 14:00 Docusate Sodium (Colace) 100 mg QHS PO Last administered on 06/28/17 19:30; Start 06/17/17 at 21:00 Levothyroxine Sodium (Synthroid) 137 mcg DAILY06 PO Last administered on 05:57; Start 06/18/17 at 06:00 Losartan Potassium (Cozaar) 25 mg DAILY PO ; Start 06/18/17 at 09:00; Stop 06/18 at 09:00; Status DC Senna/Docusate Sodium (Senna Plus) 1 tab PRN DAILY PRN PO CONSTIPATION Last administered on 06/27/17 13:45; Start 06/17/17 at 13:45 Acetaminophen (Tylenol) 1,300 mg QHS PO Last administered on 06/28/17 19:30; Start 06/17/17 at 21:00 Glucosamine/ Chondroitin (Glucosamine-Chondroitin 500/400mg) 2 cap DAILY PO Last administered on 06/24/17 08:39; Start 06/17/17 at 21:00 Fish Oil (Fish Oil) 1,000 mg DAILY PO Last administered on 06/24/17 08:39; Start 06/17/17 at 14:00 Bupropion HCl (Wellbutrin Xl) 150 mg DAILY PO Last administered on 06/20/17 10 :06; Start 06/18/17 at 09:00; Stop 06/20/17 at 11:07; Status DC Quetiapine Fumarate (SEROquel) 25 mg QHS PO Last administered on 06/18/17 20: 28; Start 06/17/17 at 21:00; Stop 06/19/17 at 18:24; Status DC Artificial Tears (Artificial Tears) 1 drop PRN QID PRN OU DRY EYE Last administered on 06/27/17 13:41; Start 06/17/17 at 19:15 Quetiapine Fumarate (SEROquel) 50 mg QHS PO Last administered on 06/22/17 19: 19; Start 06/19/17 at 21:00; Stop 06/23/17 at 19:28; Status DC Bupropion HCl (Wellbutrin Xl) 300 mg DAILY PO Last administered on 06/26/17 10 :23; Start 06/21/17 at 09:00; Stop 06/26/17 at 18:16; Status DC Aripiprazole (Abilify) 5 mg DAILY PO Last administered on 06/28/17 07:58; Start 06/23/17 at 20:00; Stop 06/28/17 at 10:12; Status DC Bupropion HCl (Wellbutrin Xl) 450 mg DAILY PO Last administered on 06/28/17 07 :59; Start 06/27/17 at 09:00 Aripiprazole (Abilify) 10 mg DAILY PO ; Start 06/29/17 at 09:00 Active Scripts Active Reported Arthritis Pain (Acetaminophen) 650 Mg Tablet.er 1,300 Mg PO QHS Sennosides-Docusate Sodium Tab (Sennosides/Docusate Sodium) 1 Each Tablet 1 Tab PO PRN DAILY PRN Colace (Docusate Sodium) 100 Mg Capsule 100 Mg PO QHS Vitamin D3 (Cholecalciferol (Vitamin D3)) 1,000 Unit Tablet 1,000 Unit PO DAILY Vitamin B-12 (Cyanocobalamin (Vitamin B-12)) 1,000 Mcg Tablet 1,000 Mcg PO DAILY Glucosamine Chondroitin [place] (Glucosa [place] 2KCL/Chondroitin Grady) 1 Each Tablet 2 Cap PO DAILY Vitamin C (Ascorbic Acid) 500 Mg Tablet 1,000 Mg PO DAILY [place] 3 1,000 Mg Softgel ([place]-3 Fatty Acids/Fish Oil) 1 Each Capsule 1 Cap PO DAILY Xanax (Alprazolam) 0.5 Mg Tablet 0.5 Mg PO PRN QHS PRN Xanax (Alprazolam) 0.25 Mg Tablet 0.25 Mg PO PRN QHS PRN Levothyroxine Sodium 137 Mcg Tablet 137 Mcg PO DAILY07 Amlodipine Besylate 10 Mg Tablet 10 Mg PO DAILY Losartan Potassium 25 Mg Tablet 25 Mg PO DAILY Diagnosis: Problems: (1) Anxiety disorder (2) Psychotic depression (3) Major depressive disorder, recurrent episode RACHELLE CHIN MD Jun 28, 2017 19:51
--- NOTE | 2017-06-29 04:18 | PN ---
DATE: 06/28/2017 PSYCHIATRIC PROGRESS NOTE This note covers elements not covered in my note of 06/28/2017. I met with the patient on the morning of 06/28/2017. The patient has been quite paranoid, refusing some of her medications and believes she is being given the wrong medications, takes it later. REVIEW OF SYSTEMS: No CV, , pulmonary, eye, ENT system symptoms on review. MENTAL STATUS EXAM: Oriented to herself and situation, still somewhat withdrawn, isolative, suspiciously repeatedly asked for me to come visit with her in the afternoon, ____ visit. Speech moderate latency, often responses monosyllabic. Abstraction fair, computation impaired, language function intact. Mood and affect still depressed, withdrawn. LABORATORY DATA: Reviewed. IMPRESSION: Unchanged from initial note. PLAN: Increase Abilify from 5 mg a day to 10 mg a day. Maintain the Wellbutrin-XL 450 mg a day, Xanax 0.25 mg at bedtime p.r.n., make further adjustments as clinically indicated. I met nursing staff. I did talk to the patient's daughter to get consent for the increased Abilify. MAN Lula CHIN MD DR: JAVI/sebastian JOB#: [id number] / [id number]
[2017-06-29] MEDS: LEVOTHYROXINE 137 MCG TABLET PO SCH (05:58)
[2017-06-29 06:03] VITALS: BP 154/90
[2017-06-29] MEDS: buPROPion XL 150 MG TAB.ER.24H PO SCH (07:49)
[2017-06-29] MEDS: OMEGA-3 FATTY ACIDS/FISH OIL 1,000 MG CAPSULE. PO SCH (07:50)
[2017-06-29] MEDS: amLODIPine BESYLATE 10 MG TABLET PO SCH (07:50)
[2017-06-29] MEDS: GLUCOSAMINE/CHOND 500/400MG CAPSULE PO SCH (07:50)
[2017-06-29] MEDS: CYANOCOBALAMIN (VITAMIN B-12) 1,000 MCG TABLET. PO SCH (07:50)
[2017-06-29] MEDS: ASCORBIC ACID 500 MG TABLET PO SCH (07:51)
[2017-06-29] MEDS: CHOLECALCIFEROL (VITAMIN D3) 1,000 UNIT TABLET PO SCH (07:51)
[2017-06-29] MEDS: ARIPiprazole 10 MG TABLET PO SCH (07:54)
[2017-06-29 08:05] LABS: BASO % 1 % (0-3); EOS # 0.1 x10^3/uL (0.0-0.7); EOS % 3 % (0-3); HEMATOCRIT 37.2 % (36.0-47.0); HEMOGLOBIN 12.7 g/dL (12.0-15.5); LYMPH # 1.1 x10^3/uL (1.0-4.8); LYMPH % 29 % (24-48); MEAN CORPUSCULAR HEMOGLOBIN 32 pg (25-35); MEAN CORPUSCULAR HGB CONC 34 g/dL (31-37); MEAN CORPUSCULAR VOLUME 95 fL (79-100); MONO # 0.4 x10^3/uL (0.0-1.1); MONO % 11 % (0-9); NEUT # 2.1 x10^3uL (1.8-7.7); NEUT % 56 % (31-73); PLATELET COUNT 109 x10^3/uL (140-400); RED BLOOD COUNT 3.91 x10^6/uL (3.50-5.40); RED CELL DISTRIBUTION WIDTH 12.8 % (11.5-14.5); WHITE BLOOD COUNT 3.8 x10^3/uL (4.0-11.0)
[2017-06-29 08:19] LABS: ALBUMIN 3.3 g/dL (3.4-5.0); ALBUMIN/GLOBULIN RATIO 1.1 (1.0-1.7); CALCIUM 8.6 mg/dL (8.5-10.1); CREATININE 1.4 mg/dL (0.6-1.0); GFR 36.4; POTASSIUM 3.7 mmol/L (3.5-5.1); TOTAL BILIRUBIN 0.5 mg/dL (0.2-1.0); TOTAL PROTEIN 6.4 g/dL (6.4-8.2)
[2017-06-29] MEDS: BISACODYL 10 MG SUPP.RECT PR PRN (13:48)
[2017-06-29 15:38] VITALS: BP 110/76
[2017-06-29] MEDS: DOCUSATE SODIUM 100 MG CAPSULE PO SCH (20:18)
[2017-06-29] MEDS: POLYVINYL ALCOHOL 1.4% OPHTH SOLUTION 15ML BOTTLE. OU PRN (20:18)
[2017-06-29] MEDS: ACETAMINOPHEN 325 MG TABLET PO SCH (20:18)
[2017-06-29] MEDS: ALPRAZolam 0.25 MG TABLET PO PRN (20:34)
[2017-06-30] MEDS: LEVOTHYROXINE 137 MCG TABLET PO SCH (05:07)
[2017-06-30 06:35] VITALS: BP 153/92
[2017-06-30] MEDS: buPROPion XL 150 MG TAB.ER.24H PO SCH (07:23)
[2017-06-30] MEDS: ARIPiprazole 10 MG TABLET PO SCH (07:23)
[2017-06-30] MEDS: CYANOCOBALAMIN (VITAMIN B-12) 1,000 MCG TABLET. PO SCH (07:24)
[2017-06-30] MEDS: CHOLECALCIFEROL (VITAMIN D3) 1,000 UNIT TABLET PO SCH (07:24)
[2017-06-30] MEDS: GLUCOSAMINE/CHOND 500/400MG CAPSULE PO SCH (07:24)
[2017-06-30] MEDS: amLODIPine BESYLATE 10 MG TABLET PO SCH (07:24)
[2017-06-30] MEDS: OMEGA-3 FATTY ACIDS/FISH OIL 1,000 MG CAPSULE. PO SCH (07:24)
[2017-06-30] MEDS: ASCORBIC ACID 500 MG TABLET PO SCH (07:24)
[2017-06-30] MEDS: POLYVINYL ALCOHOL 1.4% OPHTH SOLUTION 15ML BOTTLE. OU PRN ×2 (09:00→12:00)
[2017-06-30 16:42] VITALS: BP 113/63
--- NOTE | 2017-06-30 19:42 | PDOC ---
Exam Michael Demential Exam: Michael Note: Please also refer to the separate dictated note~for this date of service dictated separately.~Patient seen individually. Discussed the patient with Nursing staff reviewed the chart.~Reviewed interim history and current functioning. Reviewed vital signs,~Labs/ Radiology~and current medications noted below. Continue current treatment with the changes noted in the dictated addendum note Assessment: Vital Signs: Vital Signs Date Time Temp Pulse Resp B/P (MAP) Pulse Ox O2 Delivery O2 Flow Rate FiO2 06/30/17 16:42 98.9 69 18 113/63 (80) 96 06/29/17 15:38 Room Air I&O Intake and Output 06/30/17 06:59 Intake Total 720 ml Balance 720 ml Intake Oral 720 ml # Bowel Movements 1 Current Medications: Meds: Current Medications Alprazolam (Xanax) 0.25 mg PRN QHS PRN PO Mild Anxiety Last administered on 20:34; Start 06/16/17 at 23:00 Alprazolam (Xanax) 0.5 mg PRN QHS PRN PO Severe Agitation Last administered on 06/19/17 01:36; Start 06/16/17 at 23:00 Amlodipine Besylate (Norvasc) 10 mg DAILY PO Last administered on 06/30/17 07: 24; Start 06/17/17 at 14:00 Ascorbic Acid (Vitamin C) 1,000 mg DAILY PO Last administered on 06/30/17 07: 24; Start 06/17/17 at 14:00 Vitamin D (Vitamin D3) 1,000 unit DAILY PO Last administered on 06/30/17 07:24 ; Start 06/17/17 at 14:00 Cyanocobalamin (Vitamin B-12) 1,000 mcg DAILY PO Last administered on 07:24; Start 06/17/17 at 14:00 Docusate Sodium (Colace) 100 mg QHS PO Last administered on 06/29/17 20:18; Start 06/17/17 at 21:00 Levothyroxine Sodium (Synthroid) 137 mcg DAILY06 PO Last administered on 05:07; Start 06/18/17 at 06:00 Losartan Potassium (Cozaar) 25 mg DAILY PO ; Start 06/18/17 at 09:00; Stop 06/18 at 09:00; Status DC Senna/Docusate Sodium (Senna Plus) 1 tab PRN DAILY PRN PO CONSTIPATION Last administered on 06/27/17 13:45; Start 06/17/17 at 13:45 Acetaminophen (Tylenol) 1,300 mg QHS PO Last administered on 06/29/17 20:18; Start 06/17/17 at 21:00 Glucosamine/ Chondroitin (Glucosamine-Chondroitin 500/400mg) 2 cap DAILY PO Last administered on 06/30/17 07:24; Start 06/17/17 at 21:00 Fish Oil (Fish Oil) 1,000 mg DAILY PO Last administered on 06/30/17 07:24; Start 06/17/17 at 14:00 Bupropion HCl (Wellbutrin Xl) 150 mg DAILY PO Last administered on 06/20/17 10 :06; Start 06/18/17 at 09:00; Stop 06/20/17 at 11:07; Status DC Quetiapine Fumarate (SEROquel) 25 mg QHS PO Last administered on 06/18/17 20: 28; Start 06/17/17 at 21:00; Stop 06/19/17 at 18:24; Status DC Artificial Tears (Artificial Tears) 1 drop PRN QID PRN OU DRY EYE Last administered on 06/30/17 12:00; Start 06/17/17 at 19:15 Quetiapine Fumarate (SEROquel) 50 mg QHS PO Last administered on 06/22/17 19: 19; Start 06/19/17 at 21:00; Stop 06/23/17 at 19:28; Status DC Bupropion HCl (Wellbutrin Xl) 300 mg DAILY PO Last administered on 06/26/17 10 :23; Start 06/21/17 at 09:00; Stop 06/26/17 at 18:16; Status DC Aripiprazole (Abilify) 5 mg DAILY PO Last administered on 06/28/17 07:58; Start 06/23/17 at 20:00; Stop 06/28/17 at 10:12; Status DC Bupropion HCl (Wellbutrin Xl) 450 mg DAILY PO Last administered on 06/30/17 07 :23; Start 06/27/17 at 09:00 Aripiprazole (Abilify) 10 mg DAILY PO Last administered on 06/30/17 07:23; Start 06/29/17 at 09:00 Bisacodyl (Dulcolax Supp) 10 mg PRN DAILY PRN [place] CONSTIPATION Last administered on 06/29/17t 13:48; Start 06/29/17 at 13:45 Lamotrigine (LaMICtal) 25 mg QHS PO ; Start 06/30/17 at 21:00; Stop 07/06/17 at 22:00; Status UNV Lamotrigine (LaMICtal) 50 mg QHS PO ; Start 07/07/17 at 21:00; Stop 07/13/17 at 22 :00; Status UNV Lamotrigine (LaMICtal) 75 mg QHS PO ; Start 07/14/17 at 21:00; Stop 07/20/17 at 22:00; Status UNV Lamotrigine (LaMICtal) 100 mg QHS PO ; Start 07/21/17 at 21:00; Stop 07/27/17 at 22:00; Status UNV Lamotrigine (LaMICtal) 25 mg QHS PO ; Start 07/28/17 at 21:00; Stop 08/03/17 at 22:00; Status UNV Lamotrigine (LaMICtal) 100 mg QHS PO ; Start 07/28/17 at 21:00; Stop 08/03/17 at 22:00; Status UNV Lamotrigine (LaMICtal) 150 mg QHS PO ; Start 08/04/17 at 21:00; Status UNV Active Scripts Active Reported Arthritis Pain (Acetaminophen) 650 Mg Tablet.er 1,300 Mg PO QHS Sennosides-Docusate Sodium Tab (Sennosides/Docusate Sodium) 1 Each Tablet 1 Tab PO PRN DAILY PRN Colace (Docusate Sodium) 100 Mg Capsule 100 Mg PO QHS Vitamin D3 (Cholecalciferol (Vitamin D3)) 1,000 Unit Tablet 1,000 Unit PO DAILY Vitamin B-12 (Cyanocobalamin (Vitamin B-12)) 1,000 Mcg Tablet 1,000 Mcg PO DAILY Glucosamine Chondroitin [place] (Glucosa [place] 2KCL/Chondroitin Grady) 1 Each Tablet 2 Cap PO DAILY Vitamin C (Ascorbic Acid) 500 Mg Tablet 1,000 Mg PO DAILY [place] 3 1,000 Mg Softgel ([place]-3 Fatty Acids/Fish Oil) 1 Each Capsule 1 Cap PO DAILY Xanax (Alprazolam) 0.5 Mg Tablet 0.5 Mg PO PRN QHS PRN Xanax (Alprazolam) 0.25 Mg Tablet 0.25 Mg PO PRN QHS PRN Levothyroxine Sodium 137 Mcg Tablet 137 Mcg PO DAILY07 Amlodipine Besylate 10 Mg Tablet 10 Mg PO DAILY Losartan Potassium 25 Mg Tablet 25 Mg PO DAILY Diagnosis: Problems: (1) Anxiety disorder (2) Psychotic depression (3) Major depressive disorder, recurrent episode RACHELLE CHIN MD Jun 30, 2017 19:42
[2017-06-30] MEDS: ACETAMINOPHEN 325 MG TABLET PO SCH (19:51)
[2017-06-30] MEDS: DOCUSATE SODIUM 100 MG CAPSULE PO SCH (19:51)
[2017-06-30] MEDS: lamoTRIgine 25 MG TABLET. PO SCH (19:52)
[2017-06-30] MEDS: ALPRAZolam 0.25 MG TABLET PO PRN (20:39)
[2017-07-01] MEDS: MELATONIN 3 MG TABLET PO PRN (01:06)
[2017-07-01] MEDS: LEVOTHYROXINE 137 MCG TABLET PO SCH (05:59)
[2017-07-01 06:00] VITALS: BP 133/81
[2017-07-01] MEDS: ARIPiprazole 10 MG TABLET PO SCH (08:07)
[2017-07-01] MEDS: buPROPion XL 150 MG TAB.ER.24H PO SCH (08:08)
[2017-07-01] MEDS: amLODIPine BESYLATE 10 MG TABLET PO SCH (08:08)
[2017-07-01] MEDS: ASCORBIC ACID 500 MG TABLET PO SCH ×2 (08:11→10:17)
[2017-07-01] MEDS: CHOLECALCIFEROL (VITAMIN D3) 1,000 UNIT TABLET PO SCH ×2 (08:11→10:17)
[2017-07-01] MEDS: OMEGA-3 FATTY ACIDS/FISH OIL 1,000 MG CAPSULE. PO SCH ×2 (08:11→10:18)
[2017-07-01] MEDS: CYANOCOBALAMIN (VITAMIN B-12) 1,000 MCG TABLET. PO SCH ×2 (08:11→10:17)
[2017-07-01] MEDS: GLUCOSAMINE/CHOND 500/400MG CAPSULE PO SCH ×2 (08:11→10:18)
[2017-07-01] MEDS: POLYVINYL ALCOHOL 1.4% OPHTH SOLUTION 15ML BOTTLE. OU PRN (10:17)
[2017-07-01 15:48] VITALS: BP 123/71
[2017-07-01] MEDS ORDERED: traZODone 50 MG TABLET. PO PRN (18:30)
[2017-07-01] MEDS: ACETAMINOPHEN 325 MG TABLET PO SCH (19:42)
[2017-07-01] MEDS: DOCUSATE SODIUM 100 MG CAPSULE PO SCH (19:42)
[2017-07-01] MEDS: lamoTRIgine 25 MG TABLET. PO SCH (19:42)
[2017-07-01] MEDS: SENNOSIDES/DOCUSATE 8.6/50MG TABLET. PO SCH (19:43)
--- NOTE | 2017-07-01 19:50 | PDOC ---
Exam Michael Demential Exam: Michael Note: Please also refer to the separate dictated note~for this date of service dictated separately.~Patient seen individually. Discussed the patient with Nursing staff reviewed the chart.~Reviewed interim history and current functioning. Reviewed vital signs,~Labs/ Radiology~and current medications noted below. Continue current treatment with the changes noted in the dictated addendum note Assessment: Vital Signs: Vital Signs Date Time Temp Pulse Resp B/P (MAP) Pulse Ox O2 Delivery O2 Flow Rate FiO2 07/01/17 15:48 98.1 65 18 123/71 (88) 95 06/29/17 15:38 Room Air I&O Intake and Output 07/01/17 07:00 Intake Total 1320 ml Balance 1320 ml Intake Oral 1320 ml # Voids 2 Current Medications: Meds: Current Medications Alprazolam (Xanax) 0.25 mg PRN QHS PRN PO Mild Anxiety Last administered on 20:39; Start 06/16/17 at 23:00 Alprazolam (Xanax) 0.5 mg PRN QHS PRN PO Severe Agitation Last administered on 06/19/17 01:36; Start 06/16/17 at 23:00 Amlodipine Besylate (Norvasc) 10 mg DAILY PO Last administered on 07/01/17 08: 08; Start 06/17/17 at 14:00 Ascorbic Acid (Vitamin C) 1,000 mg DAILY PO Last administered on 07/01/17 10: 17; Start 06/17/17 at 14:00 Vitamin D (Vitamin D3) 1,000 unit DAILY PO Last administered on 07/01/17 10:17 ; Start 06/17/17 at 14:00 Cyanocobalamin (Vitamin B-12) 1,000 mcg DAILY PO Last administered on 10:17; Start 06/17/17 at 14:00 Docusate Sodium (Colace) 100 mg QHS PO Last administered on 07/01/17 19:42; Start 06/17/17 at 21:00 Levothyroxine Sodium (Synthroid) 137 mcg DAILY06 PO Last administered on 05:59; Start 06/18/17 at 06:00 Losartan Potassium (Cozaar) 25 mg DAILY PO ; Start 06/18/17 at 09:00; Stop 06/18 at 09:00; Status DC Senna/Docusate Sodium (Senna Plus) 1 tab PRN DAILY PRN PO CONSTIPATION Last administered on 06/27/17 13:45; Start 06/17/17 at 13:45; Stop 07/01/17 at 21:00 Acetaminophen (Tylenol) 1,300 mg QHS PO Last administered on 07/01/17 19:42; Start 06/17/17 at 21:00 Glucosamine/ Chondroitin (Glucosamine-Chondroitin 500/400mg) 2 cap DAILY PO Last administered on 07/01/17 10:18; Start 06/17/17 at 21:00 Fish Oil (Fish Oil) 1,000 mg DAILY PO Last administered on 07/01/17 10:18; Start 06/17/17 at 14:00 Bupropion HCl (Wellbutrin Xl) 150 mg DAILY PO Last administered on 06/20/17 10 :06; Start 06/18/17 at 09:00; Stop 06/20/17 at 11:07; Status DC Quetiapine Fumarate (SEROquel) 25 mg QHS PO Last administered on 06/18/17 20: 28; Start 06/17/17 at 21:00; Stop 06/19/17 at 18:24; Status DC Artificial Tears (Artificial Tears) 1 drop PRN QID PRN OU DRY EYE Last administered on 07/01/17 10:17; Start 06/17/17 at 19:15 Quetiapine Fumarate (SEROquel) 50 mg QHS PO Last administered on 06/22/17 19: 19; Start 06/19/17 at 21:00; Stop 06/23/17 at 19:28; Status DC Bupropion HCl (Wellbutrin Xl) 300 mg DAILY PO Last administered on 06/26/17 10 :23; Start 06/21/17 at 09:00; Stop 06/26/17 at 18:16; Status DC Aripiprazole (Abilify) 5 mg DAILY PO Last administered on 06/28/17 07:58; Start 06/23/17 at 20:00; Stop 06/28/17 at 10:12; Status DC Bupropion HCl (Wellbutrin Xl) 450 mg DAILY PO Last administered on 07/01/17 08 :08; Start 06/27/17 at 09:00 Aripiprazole (Abilify) 10 mg DAILY PO Last administered on 07/01/17 08:07; Start 06/29/17 at 09:00 Bisacodyl (Dulcolax Supp) 10 mg PRN DAILY PRN [place] CONSTIPATION Last administered on 06/29/17 13:48; Start 06/29/17 at 13:45 Lamotrigine (LaMICtal) 25 mg QHS PO Last administered on 07/01/17 19:42; Start 06/30/17 at 21:00; Stop 07/06/17 at 22:00 Lamotrigine (LaMICtal) 50 mg QHS PO ; Start 07/07/17 at 21:00; Stop 07/13/17 at 22 :00 Lamotrigine (LaMICtal) 75 mg QHS PO ; Start 07/14/17 at 21:00; Stop 07/20/17 at 22:00 Lamotrigine (LaMICtal) 100 mg QHS PO ; Start 07/21/17 at 21:00; Stop 07/27/17 at 22:00 Lamotrigine (LaMICtal) 25 mg QHS PO ; Start 07/28/17 at 21:00; Stop 08/03/17 at 22:00 Lamotrigine (LaMICtal) 100 mg QHS PO ; Start 07/28/17 at 21:00; Stop 08/03/17 at 22:00 Lamotrigine (LaMICtal) 150 mg QHS PO ; Start 08/04/17 at 21:00 Melatonin 3 mg PRN QHS PRN PO INSOMNIA Last administered on 07/01/17 01:06; Start 07/01/17 at 01:15 Senna/Docusate Sodium (Senna Plus) 1 tab BID PO Last administered on 07/01/17 19:43; Start 07/01/17 at 21:00 Trazodone HCl (Desyrel) 50 mg PRN QHS PRN PO INSOMNIA; Start 07/01/17 at 18:30 Trazodone HCl (Desyrel) 50 mg PRN DAILY PRN PO INSOMNIA, MAY REPEAT X1; Start 07/01/17 at 18:30 Active Scripts Active Reported Arthritis Pain (Acetaminophen) 650 Mg Tablet.er 1,300 Mg PO QHS Sennosides-Docusate Sodium Tab (Sennosides/Docusate Sodium) 1 Each Tablet 1 Tab PO PRN DAILY PRN Colace (Docusate Sodium) 100 Mg Capsule 100 Mg PO QHS Vitamin D3 (Cholecalciferol (Vitamin D3)) 1,000 Unit Tablet 1,000 Unit PO DAILY Vitamin B-12 (Cyanocobalamin (Vitamin B-12)) 1,000 Mcg Tablet 1,000 Mcg PO DAILY Glucosamine Chondroitin Caplet (Glucosa [place] 2KCL/Chondroitin Grady) 1 Each Tablet 2 Cap PO DAILY Vitamin C (Ascorbic Acid) 500 Mg Tablet 1,000 Mg PO DAILY [place] 3 1,000 Mg Softgel ([place]-3 Fatty Acids/Fish Oil) 1 Each Capsule 1 Cap PO DAILY Xanax (Alprazolam) 0.5 Mg Tablet 0.5 Mg PO PRN QHS PRN Xanax (Alprazolam) 0.25 Mg Tablet 0.25 Mg PO PRN QHS PRN Levothyroxine Sodium 137 Mcg Tablet 137 Mcg PO DAILY07 Amlodipine Besylate 10 Mg Tablet 10 Mg PO DAILY Losartan Potassium 25 Mg Tablet 25 Mg PO DAILY Diagnosis: Problems: (1) Anxiety disorder (2) Psychotic depression (3) Major depressive disorder, recurrent episode RACHELLE CHIN MD Jul 01, 2017 19:50
[2017-07-01] MEDS: traZODone 50 MG TABLET. PO PRN (20:39)
[2017-07-02] MEDS: ALPRAZolam 0.25 MG TABLET PO PRN (00:43)
[2017-07-02] MEDS: BISACODYL 10 MG SUPP.RECT PR PRN (00:43)
[2017-07-02] MEDS: LEVOTHYROXINE 137 MCG TABLET PO SCH (03:13)
[2017-07-02 07:30] VITALS: BP 115/74
[2017-07-02] MEDS: ARIPiprazole 10 MG TABLET PO SCH (08:34)
[2017-07-02] MEDS: OMEGA-3 FATTY ACIDS/FISH OIL 1,000 MG CAPSULE. PO SCH (08:34)
[2017-07-02] MEDS: GLUCOSAMINE/CHOND 500/400MG CAPSULE PO SCH (08:34)
[2017-07-02] MEDS: SENNOSIDES/DOCUSATE 8.6/50MG TABLET. PO SCH ×2 (08:35→19:03)
[2017-07-02] MEDS: CHOLECALCIFEROL (VITAMIN D3) 1,000 UNIT TABLET PO SCH (08:35)
[2017-07-02] MEDS: ASCORBIC ACID 500 MG TABLET PO SCH (08:35)
[2017-07-02] MEDS: CYANOCOBALAMIN (VITAMIN B-12) 1,000 MCG TABLET. PO SCH (08:35)
[2017-07-02] MEDS: amLODIPine BESYLATE 10 MG TABLET PO SCH (08:35)
[2017-07-02] MEDS: buPROPion XL 150 MG TAB.ER.24H PO SCH (08:35)
[2017-07-02] MEDS ORDERED: MAGNESIUM HYDROXIDE 2,400 MG/30 ML ORAL.SUSP. PO PRN (10:15)
--- NOTE | 2017-07-02 10:16 | PN ---
DATE: 06/30/2017 This late entry on 06/30/2017 covers elements not covered in my initial note of 06/30/2017. SUBJECTIVE: I met with the patient evening of 06/30/2017. I had a long message from the daughter indicating that the daughter was diagnosed with bipolar 2 disorder and placed on Lamictal and she wondered whether her mother would do better on Lamictal as well. The patient has had a sudden onset of her mood symptoms and I have carefully reviewed her history, which may be indicative of bipolar 2 disorder as opposed to major depressive disorder with psychotic features. But, in view of this, we will go ahead and gradually start her on Lamictal to reach a therapeutic level. No CV, , pulmonary, eye system symptoms on review. MENTAL STATUS EXAM: Seems much brighter, more verbal, still anxious, repetitive, obsessive, abstraction fair, computation impaired, language function intact, less psychotic, still somewhat paranoid. No suicidal or homicidal ideation. LABORATORY DATA: Reviewed. IMPRESSION: Major depressive disorder with psychotic features versus bipolar 2 disorder, depressed with psychotic features, in partial remission; anxiety disorder, unspecified. Rest unchanged. PLAN: Start Lamictal, continue rest of the psychotropics mentioned in my initial note. Reviewed drug interactions risk/benefit ratio favors no further change. RACHELLE CHIN MD DR: JAVI/sebastian JOB#: [id number] / [id number]
[2017-07-02 15:52] VITALS: BP 135/82
[2017-07-02] MEDS: DOCUSATE SODIUM 100 MG CAPSULE PO SCH (19:03)
[2017-07-02] MEDS: lamoTRIgine 25 MG TABLET. PO SCH (19:03)
[2017-07-02] MEDS: ACETAMINOPHEN 325 MG TABLET PO SCH (19:04)
[2017-07-02] MEDS: traZODone 50 MG TABLET. PO PRN (19:31)
[2017-07-02] MEDS: POLYVINYL ALCOHOL 1.4% OPHTH SOLUTION 15ML BOTTLE. OU PRN (19:32)
--- NOTE | 2017-07-02 19:50 | PDOC ---
Exam Michael Demential Exam: Michael Note: Please also refer to the separate dictated note~for this date of service dictated separately.~Patient seen individually. Discussed the patient with Nursing staff reviewed the chart.~Reviewed interim history and current functioning. Reviewed vital signs,~Labs/ Radiology~and current medications noted below. Continue current treatment with the changes noted in the dictated addendum note Assessment: Vital Signs: Vital Signs Date Time Temp Pulse Resp B/P (MAP) Pulse Ox O2 Delivery O2 Flow Rate FiO2 07/02/17 15:52 98.9 67 18 135/82 (99) 100 07/02/17 07:30 Room Air I&O Intake and Output 07/03/17 07:00 Intake Total 840 ml Balance 840 ml Intake Oral 840 ml Current Medications: Meds: Current Medications Alprazolam (Xanax) 0.25 mg PRN QHS PRN PO Mild Anxiety Last administered on 00:43; Start 06/16/17 at 23:00 Alprazolam (Xanax) 0.5 mg PRN QHS PRN PO Severe Agitation Last administered on 06/19/17 01:36; Start 06/16/17 at 23:00 Amlodipine Besylate (Norvasc) 10 mg DAILY PO Last administered on 07/02/17 08: 35; Start 06/17/17 at 14:00 Ascorbic Acid (Vitamin C) 1,000 mg DAILY PO Last administered on 07/02/17 08: 35; Start 06/17/17 at 14:00 Vitamin D (Vitamin D3) 1,000 unit DAILY PO Last administered on 07/02/17 08:35 ; Start 06/17/17 at 14:00 Cyanocobalamin (Vitamin B-12) 1,000 mcg DAILY PO Last administered on 08:35; Start 06/17/17 at 14:00 Docusate Sodium (Colace) 100 mg QHS PO Last administered on 07/02/17 19:03; Start 06/17/17 at 21:00 Levothyroxine Sodium (Synthroid) 137 mcg DAILY06 PO Last administered on 03:13; Start 06/18/17 at 06:00 Losartan Potassium (Cozaar) 25 mg DAILY PO ; Start 06/18/17 at 09:00; Stop 06/18 at 09:00; Status DC Senna/Docusate Sodium (Senna Plus) 1 tab PRN DAILY PRN PO CONSTIPATION Last administered on 06/27/17 13:45; Start 06/17/17 at 13:45; Stop 07/01/17 at 21:00 ; Status DC Acetaminophen (Tylenol) 1,300 mg QHS PO Last administered on 07/02/17 19:04; Start 06/17/17 at 21:00 Glucosamine/ Chondroitin (Glucosamine-Chondroitin 500/400mg) 2 cap DAILY PO Last administered on 07/02/17 08:34; Start 06/17/17 at 21:00 Fish Oil (Fish Oil) 1,000 mg DAILY PO Last administered on 07/02/17 08:34; Start 06/17/17 at 14:00 Bupropion HCl (Wellbutrin Xl) 150 mg DAILY PO Last administered on 06/20/17 10 :06; Start 06/18/17 at 09:00; Stop 06/20/17 at 11:07; Status DC Quetiapine Fumarate (SEROquel) 25 mg QHS PO Last administered on 06/18/17 20: 28; Start 06/17/17 at 21:00; Stop 06/19/17 at 18:24; Status DC Artificial Tears (Artificial Tears) 1 drop PRN QID PRN OU DRY EYE Last administered on 07/02/17 19:32; Start 06/17/17 at 19:15 Quetiapine Fumarate (SEROquel) 50 mg QHS PO Last administered on 06/22/17 19: 19; Start 06/19/17 at 21:00; Stop 06/23/17 at 19:28; Status DC Bupropion HCl (Wellbutrin Xl) 300 mg DAILY PO Last administered on 06/26/17 10 :23; Start 06/21/17 at 09:00; Stop 06/26/17 at 18:16; Status DC Aripiprazole (Abilify) 5 mg DAILY PO Last administered on 06/28/17 07:58; Start 06/23/17 at 20:00; Stop 06/28/17 at 10:12; Status DC Bupropion HCl (Wellbutrin Xl) 450 mg DAILY PO Last administered on 07/02/17 08 :35; Start 06/27/17 at 09:00 Aripiprazole (Abilify) 10 mg DAILY PO Last administered on 07/02/17 08:34; Start 06/29/17 at 09:00 Bisacodyl (Dulcolax Supp) 10 mg PRN DAILY PRN [place] CONSTIPATION Last administered on 07/02/17 00:43; Start 06/29/17 at 13:45 Lamotrigine (LaMICtal) 25 mg QHS PO Last administered on 07/02/17 19:03; Start 06/30/17 at 21:00; Stop 07/06/17 at 22:00 Lamotrigine (LaMICtal) 50 mg QHS PO ; Start 07/07/17 at 21:00; Stop 07/13/17 at 22 :00 Lamotrigine (LaMICtal) 75 mg QHS PO ; Start 07/14/17 at 21:00; Stop 07/20/17 at 22:00 Lamotrigine (LaMICtal) 100 mg QHS PO ; Start 07/21/17 at 21:00; Stop 07/27/17 at 22:00 Lamotrigine (LaMICtal) 25 mg QHS PO ; Start 07/28/17 at 21:00; Stop 08/03/17 at 22:00 Lamotrigine (LaMICtal) 100 mg QHS PO ; Start 07/28/17 at 21:00; Stop 08/03/17 at 22:00 Lamotrigine (LaMICtal) 150 mg QHS PO ; Start 08/04/17 at 21:00 Melatonin 3 mg PRN QHS PRN PO INSOMNIA Last administered on 07/01/17 01:06; Start 07/01/17 at 01:15 Senna/Docusate Sodium (Senna Plus) 1 tab BID PO Last administered on 07/02/17 19:03; Start 07/01/17 at 21:00 Trazodone HCl (Desyrel) 50 mg PRN QHS PRN PO INSOMNIA Last administered on 07/02 19:31; Start 07/01/17 at 18:30 Trazodone HCl (Desyrel) 50 mg PRN DAILY PRN PO INSOMNIA, MAY REPEAT X1; Start 07/01/17 at 18:30 Magnesium Hydroxide (Milk Of Magnesia) 2,400 mg PRN DAILY PRN PO CONSTIPATION; Start 07/02/17 at 10:15 Active Scripts Active Reported Arthritis Pain (Acetaminophen) 650 Mg Tablet.er 1,300 Mg PO QHS Sennosides-Docusate Sodium Tab (Sennosides/Docusate Sodium) 1 Each Tablet 1 Tab PO PRN DAILY PRN Colace (Docusate Sodium) 100 Mg Capsule 100 Mg PO QHS Vitamin D3 (Cholecalciferol (Vitamin D3)) 1,000 Unit Tablet 1,000 Unit PO DAILY Vitamin B-12 (Cyanocobalamin (Vitamin B-12)) 1,000 Mcg Tablet 1,000 Mcg PO DAILY Glucosamine Chondroitin Cap[place] (Glucosa [place]ady 2KCL/Chondroitin Grady) 1 Each Tablet 2 Cap PO DAILY Vitamin C (Ascorbic Acid) 500 Mg Tablet 1,000 Mg PO DAILY [place] 3 1,000 Mg Softgel ([place]-3 Fatty Acids/Fish Oil) 1 Each Capsule 1 Cap PO DAILY Xanax (Alprazolam) 0.5 Mg Tablet 0.5 Mg PO PRN QHS PRN Xanax (Alprazolam) 0.25 Mg Tablet 0.25 Mg PO PRN QHS PRN Levothyroxine Sodium 137 Mcg Tablet 137 Mcg PO DAILY07 Amlodipine Besylate 10 Mg Tablet 10 Mg PO DAILY Losartan Potassium 25 Mg Tablet 25 Mg PO DAILY Diagnosis: Problems: (1) Anxiety disorder (2) Psychotic depression (3) Major depressive disorder, recurrent episode RACHELLE CHIN MD Jul 02, 2017 19:50
[2017-07-03] MEDS: LEVOTHYROXINE 137 MCG TABLET PO SCH (05:55)
[2017-07-03 05:57] VITALS: BP 156/84
--- NOTE | 2017-07-03 07:14 | PN ---
DATE: 07/01/2017 This late entry 07/01/2017 covers elements not covered in my initial note of 07/01/2017. I met with the patient in the evening of 07/01/2017. Overall, per nursing report, the patient has been calm, compliant, cooperative, took her medications, slept somewhat poorly five and a quarter hours previous evening. I returned a call from the patient's daughter, Eliza. Eliza wanted to share her own diagnosis of bipolar disorder following the stress of divorce. We discussed the patient's treatment on Lamictal, which was added and given the suddenness of her current deterioration, depressions, psychotic symptoms, certainly bipolar 2 may be a consideration. Her outpatient psychiatrist will have to reassess all of this, but we have added Lamictal in the meantime. REVIEW OF SYSTEMS: Positive for chronic constipation, wanting her Senna back along with suppository p.r.n. No CV, , pulmonary, eye system symptoms on review. MENTAL STATUS EXAM: Oriented reasonably. Speech coherent, more animated, abstraction fair, computation impaired, language function intact. Mood and affect is improved. LABORATORY DATA: Reviewed. IMPRESSION: Unchanged from initial note. Major depressive disorder with psychotic features in partial remission; bipolar 2 disorder; depressed with psychotic features, in partial remission; cognitive disorder, unspecified. Rest unchanged. PLAN: Add trazodone 50 mg at bedtime p.r.n., march repeat x 1 for insomnia. Continue rest of the psychotropics mentioned in my initial note including the Lamictal, which was initiated. MAN Lula CHIN MD DR: JAVI/sebastian JOB#: [id number] / [id number]
[2017-07-03] MEDS: ARIPiprazole 10 MG TABLET PO SCH (08:02)
[2017-07-03] MEDS: buPROPion XL 150 MG TAB.ER.24H PO SCH (08:02)
[2017-07-03] MEDS: CHOLECALCIFEROL (VITAMIN D3) 1,000 UNIT TABLET PO SCH (08:02)
[2017-07-03] MEDS: amLODIPine BESYLATE 10 MG TABLET PO SCH (08:02)
[2017-07-03] MEDS: ASCORBIC ACID 500 MG TABLET PO SCH (08:02)
[2017-07-03] MEDS: OMEGA-3 FATTY ACIDS/FISH OIL 1,000 MG CAPSULE. PO SCH (08:02)
[2017-07-03] MEDS: GLUCOSAMINE/CHOND 500/400MG CAPSULE PO SCH (08:03)
[2017-07-03] MEDS: CYANOCOBALAMIN (VITAMIN B-12) 1,000 MCG TABLET. PO SCH (08:03)
[2017-07-03] MEDS: SENNOSIDES/DOCUSATE 8.6/50MG TABLET. PO SCH ×2 (08:03→19:15)
[2017-07-03] MEDS: POLYVINYL ALCOHOL 1.4% OPHTH SOLUTION 15ML BOTTLE. OU PRN ×2 (10:29→19:57)
[2017-07-03 16:15] VITALS: BP 131/83
[2017-07-03] MEDS: lamoTRIgine 25 MG TABLET. PO SCH (19:15)
[2017-07-03] MEDS: ACETAMINOPHEN 325 MG TABLET PO SCH (19:15)
[2017-07-03] MEDS: DOCUSATE SODIUM 100 MG CAPSULE PO SCH (19:15)
[2017-07-03] MEDS: MELATONIN 3 MG TABLET PO PRN (19:57)
--- NOTE | 2017-07-03 19:58 | PDOC ---
Exam Michael Demential Exam: Michael Note: Please also refer to the separate dictated note~for this date of service dictated separately.~Patient seen individually. Discussed the patient with Nursing staff reviewed the chart.~Reviewed interim history and current functioning. Reviewed vital signs,~Labs/ Radiology~and current medications noted below. Continue current treatment with the changes noted in the dictated addendum note Assessment: Vital Signs: Vital Signs Date Time Temp Pulse Resp B/P (MAP) Pulse Ox O2 Delivery O2 Flow Rate FiO2 07/03/17 16:15 98.7 71 20 131/83 (99) 96 07/02/17 07:30 Room Air I&O Intake and Output 07/04/17 07:00 Intake Total 1320 ml Balance 1320 ml Intake Oral 1320 ml Current Medications: Meds: Current Medications Alprazolam (Xanax) 0.25 mg PRN QHS PRN PO Mild Anxiety Last administered on 00:43; Start 06/16/17 at 23:00 Alprazolam (Xanax) 0.5 mg PRN QHS PRN PO Severe Agitation Last administered on 06/19/17 01:36; Start 06/16/17 at 23:00 Amlodipine Besylate (Norvasc) 10 mg DAILY PO Last administered on 07/03/17 08: 02; Start 06/17/17 at 14:00 Ascorbic Acid (Vitamin C) 1,000 mg DAILY PO Last administered on 07/03/17 08: 02; Start 06/17/17 at 14:00 Vitamin D (Vitamin D3) 1,000 unit DAILY PO Last administered on 07/03/17 08:02 ; Start 06/17/17 at 14:00 Cyanocobalamin (Vitamin B-12) 1,000 mcg DAILY PO Last administered on 08:03; Start 06/17/17 at 14:00 Docusate Sodium (Colace) 100 mg QHS PO Last administered on 07/03/17 19:15; Start 06/17/17 at 21:00 Levothyroxine Sodium (Synthroid) 137 mcg DAILY06 PO Last administered on 05:55; Start 06/18/17 at 06:00 Losartan Potassium (Cozaar) 25 mg DAILY PO ; Start 06/18/17 at 09:00; Stop 06/18 at 09:00; Status DC Senna/Docusate Sodium (Senna Plus) 1 tab PRN DAILY PRN PO CONSTIPATION Last administered on 06/27/17 13:45; Start 06/17/17 at 13:45; Stop 07/01/17 at 21:00 ; Status DC Acetaminophen (Tylenol) 1,300 mg QHS PO Last administered on 07/03/17 19:15; Start 06/17/17 at 21:00 Glucosamine/ Chondroitin (Glucosamine-Chondroitin 500/400mg) 2 cap DAILY PO Last administered on 07/03/17 08:03; Start 06/17/17 at 21:00 Fish Oil (Fish Oil) 1,000 mg DAILY PO Last administered on 07/03/17 08:02; Start 06/17/17 at 14:00 Bupropion HCl (Wellbutrin Xl) 150 mg DAILY PO Last administered on 06/20/17 10 :06; Start 06/18/17 at 09:00; Stop 06/20/17 at 11:07; Status DC Quetiapine Fumarate (SEROquel) 25 mg QHS PO Last administered on 06/18/17 20: 28; Start 06/17/17 at 21:00; Stop 06/19/17 at 18:24; Status DC Artificial Tears (Artificial Tears) 1 drop PRN QID PRN OU DRY EYE Last administered on 07/03/17 10:29; Start 06/17/17 at 19:15 Quetiapine Fumarate (SEROquel) 50 mg QHS PO Last administered on 06/22/17 19: 19; Start 06/19/17 at 21:00; Stop 06/23/17 at 19:28; Status DC Bupropion HCl (Wellbutrin Xl) 300 mg DAILY PO Last administered on 06/26/17 10 :23; Start 06/21/17 at 09:00; Stop 06/26/17 at 18:16; Status DC Aripiprazole (Abilify) 5 mg DAILY PO Last administered on 06/28/17 07:58; Start 06/23/17 at 20:00; Stop 06/28/17 at 10:12; Status DC Bupropion HCl (Wellbutrin Xl) 450 mg DAILY PO Last administered on 07/03/17 08 :02; Start 06/27/17 at 09:00 Aripiprazole (Abilify) 10 mg DAILY PO Last administered on 07/03/17 08:02; Start 06/29/17 at 09:00 Bisacodyl (Dulcolax Supp) 10 mg PRN DAILY PRN [place] CONSTIPATION Last administered on 07/02/17 00:43; Start 06/29/17 at 13:45 Lamotrigine (LaMICtal) 25 mg QHS PO Last administered on 07/03/17 19:15; Start 06/30/17 at 21:00; Stop 07/06/17 at 22:00 Lamotrigine (LaMICtal) 50 mg QHS PO ; Start 07/07/17 at 21:00; Stop 07/13/17 at 22 :00 Lamotrigine (LaMICtal) 75 mg QHS PO ; Start 07/14/17 at 21:00; Stop 07/20/17 at 22:00 Lamotrigine (LaMICtal) 100 mg QHS PO ; Start 07/21/17 at 21:00; Stop 07/27/17 at 22:00 Lamotrigine (LaMICtal) 25 mg QHS PO ; Start 07/28/17 at 21:00; Stop 08/03/17 at 22:00 Lamotrigine (LaMICtal) 100 mg QHS PO ; Start 07/28/17 at 21:00; Stop 08/03/17 at 22:00 Lamotrigine (LaMICtal) 150 mg QHS PO ; Start 08/04/17 at 21:00 Melatonin 3 mg PRN QHS PRN PO INSOMNIA Last administered on 07/01/17 01:06; Start 07/01/17 at 01:15 Senna/Docusate Sodium (Senna Plus) 1 tab BID PO Last administered on 07/03/17 19:15; Start 07/01/17 at 21:00 Trazodone HCl (Desyrel) 50 mg PRN QHS PRN PO INSOMNIA Last administered on 07/02 19:31; Start 07/01/17 at 18:30 Trazodone HCl (Desyrel) 50 mg PRN DAILY PRN PO INSOMNIA, MAY REPEAT X1; Start 07/01/17 at 18:30 Magnesium Hydroxide (Milk Of Magnesia) 2,400 mg PRN DAILY PRN PO CONSTIPATION; Start 07/02/17 at 10:15 Active Scripts Active Reported Arthritis Pain (Acetaminophen) 650 Mg Tablet.er 1,300 Mg PO QHS Sennosides-Docusate Sodium Tab (Sennosides/Docusate Sodium) 1 Each Tablet 1 Tab PO PRN DAILY PRN Colace (Docusate Sodium) 100 Mg Capsule 100 Mg PO QHS Vitamin D3 (Cholecalciferol (Vitamin D3)) 1,000 Unit Tablet 1,000 Unit PO DAILY Vitamin B-12 (Cyanocobalamin (Vitamin B-12)) 1,000 Mcg Tablet 1,000 Mcg PO DAILY Glucosamine Chondroitin [place] (Glucosa [place]ady 2KCL/Chondroitin Grady) 1 Each Tablet 2 Cap PO DAILY Vitamin C (Ascorbic Acid) 500 Mg Tablet 1,000 Mg PO DAILY [place] 3 1,000 Mg Softgel ([place]-3 Fatty Acids/Fish Oil) 1 Each Capsule 1 Cap PO DAILY Xanax (Alprazolam) 0.5 Mg Tablet 0.5 Mg PO PRN QHS PRN Xanax (Alprazolam) 0.25 Mg Tablet 0.25 Mg PO PRN QHS PRN Levothyroxine Sodium 137 Mcg Tablet 137 Mcg PO DAILY07 Amlodipine Besylate 10 Mg Tablet 10 Mg PO DAILY Losartan Potassium 25 Mg Tablet 25 Mg PO DAILY Diagnosis: Problems: (1) Anxiety disorder (2) Psychotic depression (3) Major depressive disorder, recurrent episode RACHELLE CHIN MD Jul 03, 2017 19:58
--- NOTE | 2017-07-04 01:19 | PN ---
DATE: 07/02/2017 This late entry 07/02/2017 covers elements not covered in my initial note. SUBJECTIVE: I met with the patient in the evening of 07/02/2017. The patient slept 4-1/2 hours previous evening. She is cooperative, compliant with medications, more interactive, animated, verbal. Has had no bowel movement and was fixated on this. We have added senna, Surfak and Dulcolax suppository p.r.n. REVIEW OF SYSTEMS: Other than constipation. No CV, , pulmonary, eye system symptoms on review. MENTAL STATUS EXAM: The patient is reasonably oriented. Speech is coherent, abstraction fair, computation impaired, language function intact, attention span short. Mood and affect is improved. 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 IMPRESSION: Unchanged from initial note, major depressive disorder with psychotic features in partial remission, probable bipolar 1 disorder, mixed with psychotic features, in partial remission; anxiety disorder, unspecified; cognitive disorder, unspecified. PLAN: Continue current psychotropics, reviewed drug interactions, risk/benefit ratio favors no further change as of now. RACHELLE CHIN MD DR: JAVI/sebastian JOB#: [id number] / [id number]
[2017-07-04] MEDS: LEVOTHYROXINE 137 MCG TABLET PO SCH (06:08)
[2017-07-04 06:11] VITALS: BP 130/80
[2017-07-04] MEDS: ARIPiprazole 10 MG TABLET PO SCH (08:44)
[2017-07-04] MEDS: SENNOSIDES/DOCUSATE 8.6/50MG TABLET. PO SCH ×2 (08:44→19:45)
[2017-07-04] MEDS: CHOLECALCIFEROL (VITAMIN D3) 1,000 UNIT TABLET PO SCH (08:45)
[2017-07-04] MEDS: ASCORBIC ACID 500 MG TABLET PO SCH (08:45)
[2017-07-04] MEDS: CYANOCOBALAMIN (VITAMIN B-12) 1,000 MCG TABLET. PO SCH (08:45)
[2017-07-04] MEDS: buPROPion XL 150 MG TAB.ER.24H PO SCH (08:45)
[2017-07-04] MEDS: OMEGA-3 FATTY ACIDS/FISH OIL 1,000 MG CAPSULE. PO SCH (08:45)
[2017-07-04] MEDS: amLODIPine BESYLATE 10 MG TABLET PO SCH (08:46)
[2017-07-04] MEDS: GLUCOSAMINE/CHOND 500/400MG CAPSULE PO SCH (08:46)
[2017-07-04] MEDS: POLYVINYL ALCOHOL 1.4% OPHTH SOLUTION 15ML BOTTLE. OU PRN ×2 (08:58→19:45)
[2017-07-04 16:15] VITALS: BP 122/80
[2017-07-04] MEDS: lamoTRIgine 25 MG TABLET. PO SCH (19:44)
[2017-07-04] MEDS: DOCUSATE SODIUM 100 MG CAPSULE PO SCH (19:45)
[2017-07-04] MEDS: ACETAMINOPHEN 325 MG TABLET PO SCH (19:45)
--- NOTE | 2017-07-04 19:57 | PDOC ---
Exam Michael Demential Exam: Michael Note: Please also refer to the separate dictated note~for this date of service dictated separately.~Patient seen individually. Discussed the patient with Nursing staff reviewed the chart.~Reviewed interim history and current functioning. Reviewed vital signs,~Labs/ Radiology~and current medications noted below. Continue current treatment with the changes noted in the dictated addendum note Assessment: Vital Signs: Vital Signs Date Time Temp Pulse Resp B/P (MAP) Pulse Ox O2 Delivery O2 Flow Rate FiO2 07/04/17 16:15 98.5 70 20 122/80 (94) 96 07/02/17 07:30 Room Air I&O Intake and Output 07/05/17 06:59 Intake Total 960 ml Balance 960 ml Intake Oral 960 ml Current Medications: Meds: Current Medications Alprazolam (Xanax) 0.25 mg PRN QHS PRN PO Mild Anxiety Last administered on 00:43; Start 06/16/17 at 23:00 Alprazolam (Xanax) 0.5 mg PRN QHS PRN PO Severe Agitation Last administered on 06/19/17 01:36; Start 06/16/17 at 23:00 Amlodipine Besylate (Norvasc) 10 mg DAILY PO Last administered on 07/04/17 08: 46; Start 06/17/17 at 14:00 Ascorbic Acid (Vitamin C) 1,000 mg DAILY PO Last administered on 07/04/17 08: 45; Start 06/17/17 at 14:00 Vitamin D (Vitamin D3) 1,000 unit DAILY PO Last administered on 07/04/17 08:45 ; Start 06/17/17 at 14:00 Cyanocobalamin (Vitamin B-12) 1,000 mcg DAILY PO Last administered on 08:45; Start 06/17/17 at 14:00 Docusate Sodium (Colace) 100 mg QHS PO Last administered on 07/04/17 19:45; Start 06/17/17 at 21:00 Levothyroxine Sodium (Synthroid) 137 mcg DAILY06 PO Last administered on 06:08; Start 06/18/17 at 06:00 Losartan Potassium (Cozaar) 25 mg DAILY PO ; Start 06/18/17 at 09:00; Stop 06/18 at 09:00; Status DC Senna/Docusate Sodium (Senna Plus) 1 tab PRN DAILY PRN PO CONSTIPATION Last administered on 06/27/17 13:45; Start 06/17/17 at 13:45; Stop 07/01/17 at 21:00 ; Status DC Acetaminophen (Tylenol) 1,300 mg QHS PO Last administered on 07/04/17 19:45; Start 06/17/17 at 21:00 Glucosamine/ Chondroitin (Glucosamine-Chondroitin 500/400mg) 2 cap DAILY PO Last administered on 07/04/17 08:46; Start 06/17/17 at 21:00 Fish Oil (Fish Oil) 1,000 mg DAILY PO Last administered on 07/04/17 08:45; Start 06/17/17 at 14:00 Bupropion HCl (Wellbutrin Xl) 150 mg DAILY PO Last administered on 06/20/17 10 :06; Start 06/18/17 at 09:00; Stop 06/20/17 at 11:07; Status DC Quetiapine Fumarate (SEROquel) 25 mg QHS PO Last administered on 06/18/17 20: 28; Start 06/17/17 at 21:00; Stop 06/19/17 at 18:24; Status DC Artificial Tears (Artificial Tears) 1 drop PRN QID PRN OU DRY EYE Last administered on 07/04/17 19:45; Start 06/17/17 at 19:15 Quetiapine Fumarate (SEROquel) 50 mg QHS PO Last administered on 06/22/17 19: 19; Start 06/19/17 at 21:00; Stop 06/23/17 at 19:28; Status DC Bupropion HCl (Wellbutrin Xl) 300 mg DAILY PO Last administered on 06/26/17 10 :23; Start 06/21/17 at 09:00; Stop 06/26/17 at 18:16; Status DC Aripiprazole (Abilify) 5 mg DAILY PO Last administered on 06/28/17 07:58; Start 06/23/17 at 20:00; Stop 06/28/17 at 10:12; Status DC Bupropion HCl (Wellbutrin Xl) 450 mg DAILY PO Last administered on 07/04/17 08 :45; Start 06/27/17 at 09:00 Aripiprazole (Abilify) 10 mg DAILY PO Last administered on 07/04/17 08:44; Start 06/29/17 at 09:00 Bisacodyl (Dulcolax Supp) 10 mg PRN DAILY PRN [place] CONSTIPATION Last administered on 07/02/17 00:43; Start 06/29/17 at 13:45 Lamotrigine (LaMICtal) 25 mg QHS PO Last administered on 07/04/17 19:44; Start 06/30/17 at 21:00; Stop 07/06/17 at 22:00 Lamotrigine (LaMICtal) 50 mg QHS PO ; Start 07/07/17 at 21:00; Stop 07/13/17 at 22 :00 Lamotrigine (LaMICtal) 75 mg QHS PO ; Start 07/14/17 at 21:00; Stop 07/20/17 at 22:00 Lamotrigine (LaMICtal) 100 mg QHS PO ; Start 07/21/17 at 21:00; Stop 07/27/17 at 22:00 Lamotrigine (LaMICtal) 25 mg QHS PO ; Start 07/28/17 at 21:00; Stop 08/03/17 at 22:00 Lamotrigine (LaMICtal) 100 mg QHS PO ; Start 07/28/17 at 21:00; Stop 08/03/17 at 22:00 Lamotrigine (LaMICtal) 150 mg QHS PO ; Start 08/04/17 at 21:00 Melatonin 3 mg PRN QHS PRN PO INSOMNIA Last administered on 07/03/17 19:57; Start 07/01/17 at 01:15 Senna/Docusate Sodium (Senna Plus) 1 tab BID PO Last administered on 07/04/17 19:45; Start 07/01/17 at 21:00 Trazodone HCl (Desyrel) 50 mg PRN QHS PRN PO INSOMNIA Last administered on 07/02 19:31; Start 07/01/17 at 18:30 Trazodone HCl (Desyrel) 50 mg PRN DAILY PRN PO INSOMNIA, MAY REPEAT X1; Start 07/01/17 at 18:30 Magnesium Hydroxide (Milk Of Magnesia) 2,400 mg PRN DAILY PRN PO CONSTIPATION; Start 07/02/17 at 10:15 Active Scripts Active Reported Arthritis Pain (Acetaminophen) 650 Mg Tablet.er 1,300 Mg PO QHS Sennosides-Docusate Sodium Tab (Sennosides/Docusate Sodium) 1 Each Tablet 1 Tab PO PRN DAILY PRN Colace (Docusate Sodium) 100 Mg Capsule 100 Mg PO QHS Vitamin D3 (Cholecalciferol (Vitamin D3)) 1,000 Unit Tablet 1,000 Unit PO DAILY Vitamin B-12 (Cyanocobalamin (Vitamin B-12)) 1,000 Mcg Tablet 1,000 Mcg PO DAILY Glucosamine Chondroitin [place] (Glucosa [place] 2KCL/Chondroitin Grady) 1 Each Tablet 2 Cap PO DAILY Vitamin C (Ascorbic Acid) 500 Mg Tablet 1,000 Mg PO DAILY [place] 3 1,000 Mg Softgel ([place]-3 Fatty Acids/Fish Oil) 1 Each Capsule 1 Cap PO DAILY Xanax (Alprazolam) 0.5 Mg Tablet 0.5 Mg PO PRN QHS PRN Xanax (Alprazolam) 0.25 Mg Tablet 0.25 Mg PO PRN QHS PRN Levothyroxine Sodium 137 Mcg Tablet 137 Mcg PO DAILY07 Amlodipine Besylate 10 Mg Tablet 10 Mg PO DAILY Losartan Potassium 25 Mg Tablet 25 Mg PO DAILY Diagnosis: Problems: (1) Anxiety disorder (2) Psychotic depression (3) Major depressive disorder, recurrent episode RACHELLE CHIN MD Jul 04, 2017 19:57
--- NOTE | 2017-07-05 01:29 | PN ---
DATE: 07/03/2017 PSYCHIATRIC PROGRESS NOTE This late entry 07/03 covers elements not covered in my initial note. I met with the patient evening of 07/03. Per nursing report, the patient has done better, still appears somewhat tired, but more verbal and interactive. We discussed need for her medication compliance at length individually. REVIEW OF SYSTEMS: No CV, , pulmonary, eye, ENT system symptoms on review. MENTAL STATUS EXAM: Reasonably oriented. Speech coherent, abstraction fair, computation impaired, language function intact. Mood and affect showing improvement psychotic symptoms are better. She is more interactive. LABORATORY DATA: Reviewed. IMPRESSION: Major depressive disorder with psychotic features in partial remission, probable bipolar 2 disorder, depressed with psychotic features in partial remission, mild cognitive impairment. Rest unchanged. PLAN: Continue current psychotropics mentioned in my initial note. Reviewed drug interactions, risk/benefit ratio favors no further change at this time. MAN Lula CHIN MD DR: JAVI/sebastian JOB#: [id number] / [id number]
[2017-07-05] MEDS ORDERED: ARIP10TA9 PO (02:07)
[2017-07-05] MEDS ORDERED: BISA10SU55 RC (02:09)
[2017-07-05] MEDS ORDERED: MAGN400O7 PO (02:11)
[2017-07-05] MEDS ORDERED: MELA3TAB2 PO (02:11)
[2017-07-05] MEDS ORDERED: DEXT15DR5 OU (02:12)
[2017-07-05] MEDS ORDERED: BUPR150T15 PO (02:14)
[2017-07-05] MEDS ORDERED: LAMO25TA5 PO ×4 (02:15→02:26)
[2017-07-05] MEDS ORDERED: LAMO100T5 PO ×2 (02:25→02:27)
[2017-07-05] MEDS ORDERED: LAMO150T3 PO ×2 (02:26→02:33)
[2017-07-05] MEDS ORDERED: TRAZ50TA15 PO (02:30)
[2017-07-05 05:30] VITALS: BP 136/80
[2017-07-05] MEDS: LEVOTHYROXINE 137 MCG TABLET PO SCH (05:53)
[2017-07-05] MEDS: ARIPiprazole 10 MG TABLET PO SCH (08:58)
[2017-07-05] MEDS: GLUCOSAMINE/CHOND 500/400MG CAPSULE PO SCH (08:58)
[2017-07-05] MEDS: SENNOSIDES/DOCUSATE 8.6/50MG TABLET. PO SCH (08:58)
[2017-07-05 08:59] VITALS: BP 136/80
[2017-07-05] MEDS: OMEGA-3 FATTY ACIDS/FISH OIL 1,000 MG CAPSULE. PO SCH (08:59)
[2017-07-05] MEDS: CHOLECALCIFEROL (VITAMIN D3) 1,000 UNIT TABLET PO SCH (08:59)
[2017-07-05] MEDS: amLODIPine BESYLATE 10 MG TABLET PO SCH (08:59)
[2017-07-05] MEDS: ASCORBIC ACID 500 MG TABLET PO SCH (08:59)
[2017-07-05] MEDS: buPROPion XL 150 MG TAB.ER.24H PO SCH (08:59)
[2017-07-05] MEDS: CYANOCOBALAMIN (VITAMIN B-12) 1,000 MCG TABLET. PO SCH (08:59)
--- NOTE | 2017-07-05 18:46 | PDOC ---
Exam Michael Demential Exam: Michael Note: Please also refer to the separate dictated note~for this date of service dictated separately.~Patient seen individually. Discussed the patient with Nursing staff reviewed the chart.~Reviewed interim history and current functioning. Reviewed vital signs,~Labs/ Radiology~and current medications noted below. Continue current treatment with the changes noted in the dictated addendum note Assessment: Vital Signs: Vital Signs Date Time Temp Pulse Resp B/P (MAP) Pulse Ox O2 Delivery O2 Flow Rate FiO2 07/05/17 08:59 61 136/80 07/05/17 05:30 98.6 16 98 07/02/17 07:30 Room Air I&O Intake and Output 07/06/17 07:00 Intake Total 480 ml Balance 480 ml Intake Oral 480 ml # Voids 1 Current Medications: Meds: Current Medications Alprazolam (Xanax) 0.25 mg PRN QHS PRN PO Mild Anxiety Last administered on 00:43; Start 06/16/17 at 23:00; Stop 07/05/17 at 13:22; Status DC Alprazolam (Xanax) 0.5 mg PRN QHS PRN PO Severe Agitation Last administered on 06/19/17 01:36; Start 06/16/17 at 23:00; Stop 07/05/17 at 13:22; Status DC Amlodipine Besylate (Norvasc) 10 mg DAILY PO Last administered on 07/05/17 08: 59; Start 06/17/17 at 14:00; Stop 07/05/17 at 13:22; Status DC Ascorbic Acid (Vitamin C) 1,000 mg DAILY PO Last administered on 07/05/17 08:59 ; Start 06/17/17 at 14:00; Stop 07/05/17 at 13:22; Status DC Vitamin D (Vitamin D3) 1,000 unit DAILY PO Last administered on 07/05/17 08:59 ; Start 06/17/17 at 14:00; Stop 07/05/17 at 13:22; Status DC Cyanocobalamin (Vitamin B-12) 1,000 mcg DAILY PO Last administered on 07/05/17 08:59; Start 06/17/17 at 14:00; Stop 07/05/17 at 13:22; Status DC Docusate Sodium (Colace) 100 mg QHS PO Last administered on 07/04/17 19:45; Start 06/17/17 at 21:00; Stop 07/05/17 at 13:22; Status DC Levothyroxine Sodium (Synthroid) 137 mcg DAILY06 PO Last administered on 05:53; Start 06/18/17 at 06:00; Stop 07/05/17 at 13:22; Status DC Losartan Potassium (Cozaar) 25 mg DAILY PO ; Start 06/18/17 at 09:00; Stop 06/18 at 09:00; Status DC Senna/Docusate Sodium (Senna Plus) 1 tab PRN DAILY PRN PO CONSTIPATION Last administered on 06/27/17 13:45; Start 06/17/17 at 13:45; Stop 07/01/17 at 21:00 ; Status DC Acetaminophen (Tylenol) 1,300 mg QHS PO Last administered on 07/04/17 19:45; Start 06/17/17 at 21:00; Stop 07/05/17 at 13:22; Status DC Glucosamine/ Chondroitin (Glucosamine-Chondroitin 500/400mg) 2 cap DAILY PO Last administered on 07/05/17 08:58; Start 06/17/17 at 21:00; Stop 07/05/17 at 13 :22; Status DC Fish Oil (Fish Oil) 1,000 mg DAILY PO Last administered on 07/05/17 08:59; Start 06/17/17 at 14:00; Stop 07/05/17 at 13:22; Status DC Bupropion HCl (Wellbutrin Xl) 150 mg DAILY PO Last administered on 06/20/17 10 :06; Start 06/18/17 at 09:00; Stop 06/20/17 at 11:07; Status DC Quetiapine Fumarate (SEROquel) 25 mg QHS PO Last administered on 06/18/17 20: 28; Start 06/17/17 at 21:00; Stop 06/19/17 at 18:24; Status DC Artificial Tears (Artificial Tears) 1 drop PRN QID PRN OU DRY EYE Last administered on 07/04/17 19:45; Start 06/17/17 at 19:15; Stop 07/05/17 at 13:22 ; Status DC Quetiapine Fumarate (SEROquel) 50 mg QHS PO Last administered on 06/22/17 19: 19; Start 06/19/17 at 21:00; Stop 06/23/17 at 19:28; Status DC Bupropion HCl (Wellbutrin Xl) 300 mg DAILY PO Last administered on 06/26/17 10 :23; Start 06/21/17 at 09:00; Stop 06/26/17 at 18:16; Status DC Aripiprazole (Abilify) 5 mg DAILY PO Last administered on 06/28/17 07:58; Start 06/23/17 at 20:00; Stop 06/28/17 at 10:12; Status DC Bupropion HCl (Wellbutrin Xl) 450 mg DAILY PO Last administered on 07/05/17 08: 59; Start 06/27/17 at 09:00; Stop 07/05/17 at 13:22; Status DC Aripiprazole (Abilify) 10 mg DAILY PO Last administered on 07/05/17 08:58; Start 06/29/17 at 09:00; Stop 07/05/17 at 13:22; Status DC Bisacodyl (Dulcolax Supp) 10 mg PRN DAILY PRN [place] CONSTIPATION Last administered on 07/02/17 00:43; Start 06/29/17 at 13:45; Stop 07/05/17 at 13:22 ; Status DC Lamotrigine (LaMICtal) 25 mg QHS PO Last administered on 07/04/17 19:44; Start 06/30/17 at 21:00; Stop 07/05/17 at 13:22; Status DC Lamotrigine (LaMICtal) 50 mg QHS PO ; Start 07/07/17 at 21:00; Stop 07/07/17 at 21 :00; Status DC Lamotrigine (LaMICtal) 75 mg QHS PO ; Start 07/14/17 at 21:00; Stop 07/14/17 at 21:00; Status DC Lamotrigine (LaMICtal) 100 mg QHS PO ; Start 07/21/17 at 21:00; Stop 07/21/17 at 21:00; Status DC Lamotrigine (LaMICtal) 25 mg QHS PO ; Start 07/28/17 at 21:00; Stop 07/28/17 at 21:00; Status DC Lamotrigine (LaMICtal) 100 mg QHS PO ; Start 07/28/17 at 21:00; Stop 07/28/17 at 21:00; Status DC Lamotrigine (LaMICtal) 150 mg QHS PO ; Start 08/04/17 at 21:00; Stop 08/04/17 at 21:00; Status DC Melatonin 3 mg PRN QHS PRN PO INSOMNIA Last administered on 07/03/17 19:57; Start 07/01/17 at 01:15; Stop 07/05/17 at 13:22; Status DC Senna/Docusate Sodium (Senna Plus) 1 tab BID PO Last administered on 07/05/17 08:58; Start 07/01/17 at 21:00; Stop 07/05/17 at 13:22; Status DC Trazodone HCl (Desyrel) 50 mg PRN QHS PRN PO INSOMNIA Last administered on 07/02 19:31; Start 07/01/17 at 18:30; Stop 07/05/17 at 13:22; Status DC Trazodone HCl (Desyrel) 50 mg PRN DAILY PRN PO INSOMNIA, MAY REPEAT X1; Start 07/01/17 at 18:30; Stop 07/05/17 at 13:22; Status DC Magnesium Hydroxide (Milk Of Magnesia) 2,400 mg PRN DAILY PRN PO CONSTIPATION; Start 07/02/17 at 10:15; Stop 07/05/17 at 13:22; Status DC Active Scripts Active Reported Lamictal (Lamotrigine) 150 Mg Tablet 150 Mg PO QHS Trazodone Hcl 50 Mg Tablet 50 Mg PO PRN QHS PRN Lamictal (Lamotrigine) 25 Mg Tablet 125 Mg PO QHS 7 Days Lamictal (Lamotrigine) 100 Mg Tablet 100 Mg PO QHS 7 Days Lamictal (Lamotrigine) 25 Mg Tablet 75 Mg PO QHS 7 Days Lamictal (Lamotrigine) 25 Mg Tablet 50 Mg PO QHS 7 Days Lamictal (Lamotrigine) 25 Mg Tablet 25 Mg PO QHS 2 Days Wellbutrin Xl (Bupropion Hcl) 150 Mg Tab.er.24h 450 Mg PO DAILY Artificial Tears Eye Drops (Dextran 70/Hypromellose) 15 Ml Drops 1 Drop OU PRN QID PRN Melatonin 3 Mg Tablet 3 Mg PO PRN QHS PRN Milk Of Magnesia (Magnesium Hydroxide) 400 Mg/5 Ml Oral.susp 2,400 Mg PO PRN QHS PRN Dulcolax (Bisacodyl) 10 Mg Supp.rect 10 Mg RC PRN DAILY PRN Abilify (Aripiprazole) 10 Mg Tablet 10 Mg PO DAILY Arthritis Pain (Acetaminophen) 650 Mg Tablet.er 1,300 Mg PO QHS MDD 4000mg Sennosides-Docusate Sodium Tab (Sennosides/Docusate Sodium) 1 Each Tablet 1 Tab PO BID Colace (Docusate Sodium) 100 Mg Capsule 100 Mg PO QHS Vitamin D3 (Cholecalciferol (Vitamin D3)) 1,000 Unit Tablet 1,000 Unit PO DAILY Vitamin B-12 (Cyanocobalamin (Vitamin B-12)) 1,000 Mcg Tablet 1,000 Mcg PO DAILY Glucosamine Chondroitin [place] (Glucosa [place] 2KCL/Chondroitin [place]) 1 Each Tablet 2 Cap PO DAILY Vitamin C (Ascorbic Acid) 500 Mg Tablet 1,000 Mg PO DAILY [place] 3 1,000 Mg Softgel ([place]-3 Fatty Acids/Fish Oil) 1 Each Capsule 1,000 Mg PO DAILY Xanax (Alprazolam) 0.5 Mg Tablet 0.5 Mg PO PRN QHS PRN Xanax (Alprazolam) 0.25 Mg Tablet 0.25 Mg PO PRN QHS PRN Levothyroxine Sodium 137 Mcg Tablet 137 Mcg PO DAILY07 Amlodipine Besylate 10 Mg Tablet 10 Mg PO DAILY Diagnosis: Problems: (1) Mild cognitive disorder (2) Major depressive disorder, recurrent episode (3) Psychotic depression (4) Anxiety disorder RACHELLE CHIN MD Jul 05, 2017 18:46
--- NOTE | 2017-07-06 08:01 | PN ---
DATE: 07/04/2017 This late entry 07/04/2017 covers elements not covered in my initial note of 07/04/2017. SUBJECTIVE: The patient was staffed at a treatment team meeting with the entire team morning of 07/04/2017 and I met with her individually evening of 07/04/2017. At the treatment team meeting reviewed her history in detail, diagnosis, current medications, risk/benefit ratio at length. Family would like for us to ensure she hears from me and the staff how important it is for her to continue her psychotropics and I reiterated that with her at some length individually evening of 07/04/2017. REVIEW OF SYSTEMS: No CV, , pulmonary, eye, ENT system symptoms on review. Reliability fair. MENTAL STATUS EXAM: Oriented to herself and situation. Speech coherent, abstraction fair, computation impaired, language function intact. Mood and affect is improved. LABORATORY DATA: Reviewed. IMPRESSION: Unchanged from initial note. PLAN: Continue current psychotropics. Reviewed drug interactions, risk/benefit ratio favors no further change. RACHELLE CHIN MD DR: JAVI/sebastian JOB#: [id number] / [id number]
--- NOTE | 2017-07-06 20:34 | DS ---
DATE OF DISCHARGE: 07/05/2017 DISCHARGE SUMMARY/PSYCHIATRIC PROGRESS NOTE REASON FOR ADMISSION: Please refer to the admission history for details. Briefly, the patient is a 76-year-old female who presented with worsening symptoms of depression, psychosis, inability to take care of herself at home, worsening confusion, appearing quite demented. She was noncompliant with medications. It was taking her 3-4 hours to make a can of soup. She was withdrawn, apathetic, amotivated, despondent, hopeless, worthless, and had failed outpatient psychiatric interventions resulting in this referral. SIGNIFICANT FINDINGS AND CLINICAL COURSE: Following admission, the patient was seen daily individually by myself, followed medically per Dr. Huynh/Dr. Dang. 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 I met with her daily individually. Medically, she was followed by Dr. Huynh/Dr. Dang. She seemed to respond very positively to a combination of Wellbutrin-XL 450 mg a day, Abilify 10 mg a day. There is additional family history of bipolar 2 disorder in the daughter who responded well to Lamictal and we started the patient on Lamictal 25 mg at bedtime, increasing to 50 mg at bedtime, gradually with a plan to increase up to 150 mg a day. Trazodone was used to bedtime p.r.n. for insomnia. There was significant improvement in her mood, psychosis prior to discharge. CONDITION AT DISCHARGE: Improved. No suicidal or homicidal ideation at discharge and psychotic symptoms appear to have subsided. REVIEW OF SYSTEMS: No CV, , pulmonary, eye, ENT system symptoms on review at discharge. MENTAL STATUS EXAM: Reasonably oriented. Speech coherent, has some latency, abstraction fair, computation impaired, language function intact, attention span short. Mood and affect showing improvement. No suicidal or homicidal ideation. LABORATORY DATA: Reviewed. FINAL DIAGNOSES: Major depressive disorder, recurrent, severe with psychotic features, probable bipolar 2 disorder, depressed with psychotic features in partial remission; anxiety disorder, unspecified mild cognitive impairment. Rest diagnosis is unchanged from admission. DISCHARGE MEDICATIONS: Please refer to the [facility]. DISCHARGE INSTRUCTIONS: Outpatient psychiatric followup was arranged, medical followup with her primary care physician. Time for discharge in management greater than 30 minutes. RACHELLE CHIN MD DR: JAVI/sebastian JOB#: [id number] / [id number]
[2017-07-07] MEDS ORDERED: lamoTRIgine 25 MG TABLET. PO SCH (21:00)
[2017-07-14] MEDS ORDERED: lamoTRIgine 25 MG TABLET. PO SCH (21:00)
[2017-07-21] MEDS ORDERED: lamoTRIgine 100 MG TABLET. PO SCH (21:00)
[2017-07-28] MEDS ORDERED: lamoTRIgine 25 MG TABLET. PO SCH (21:00)
[2017-07-28] MEDS ORDERED: lamoTRIgine 100 MG TABLET. PO SCH (21:00)
[2017-08-04] MEDS ORDERED: lamoTRIgine 150 MG TABLET. PO SCH (21:00)
== END 2017-07-05 10:10 | DRG 884 ==
LOC: GEROPSY 21:30
PROVIDERS: ADMIT Psychiatry & Neurology Psychiatry; ATTEND Psychiatry & Neurology Psychiatry
DX: F01.51 Vascular dementia, unspecified severity, with behavioral disturbance (principal); G30.0 Alzheimer's disease with early onset; D69.6 Thrombocytopenia, unspecified; F02.81 Dementia in other diseases classified elsewhere, unspecified severity, with behavioral disturbance; F31.64 Bipolar disorder, current episode mixed, severe, with psychotic features; I10 Essential (primary) hypertension; E03.9 Hypothyroidism, unspecified; E78.5 Hyperlipidemia, unspecified; F09 Unspecified mental disorder due to known physiological condition; F41.9 Anxiety disorder, unspecified; G47.33 Obstructive sleep apnea (adult) (pediatric); K59.09 Other constipation; M85.80 Other specified disorders of bone density and structure, unspecified site; G47.00 Insomnia, unspecified; K57.90 Diverticulosis of intestine, part unspecified, without perforation or abscess without bleeding; M47.9 Spondylosis, unspecified; Z96.659 Presence of unspecified artificial knee joint; M50.30 Other cervical disc degeneration, unspecified cervical region; Z79.899 Other long term (current) drug therapy; Z80.1 Family history of malignant neoplasm of trachea, bronchus and lung; Z85.3 Personal history of malignant neoplasm of breast; Z88.5 Allergy status to narcotic agent; Z91.14 Patient's other noncompliance with medication regimen; Z98.41 Cataract extraction status, right eye; Z98.42 Cataract extraction status, left eye; Z88.8 Allergy status to other drugs, medicaments and biological substances; Z88.6 Allergy status to analgesic agent
CPT/HCPCS: 36415; 80053; 80061; 82140; 82306; 82607; 83036; 83540; 83550; 83735; 84436; 84443; 84480; 85025; 86592; 86593; 97110; 97530; 97535